=== PATIENT | male | born 1935 | race Caucasian/White ===

== ENCOUNTER 2017-03-11 13:19 | Inpatient (IN) | payer MEDICARE ==
[~2017-03-11] VITALS: Ht 180.3 cm; Wt 70.0 kg
[~2017-03-11 13:19] MED LIST: ASPI81TA82 PO; COUM2TAB PO; COUM3TAB PO; EYEDRO; FOLI1 PO; FURO20 PO; LEFL20TA7 PO; METO50TA PO; MULTCAP14 PO; OMEP20TA39 PO; OXYC-360 PO; PRAV80TA PO; PYRI50TA PO; RAMI5CAP7 PO; WARF2.5 PO
[2017-03-11 13:28] VITALS: BP 112/53; PULSE 53; RESP 16; TEMP 97.3; O2SAT 98
[2017-03-11] MEDS ORDERED: POTA-163 PO (13:49)
[2017-03-11] MEDS ORDERED: METO25TA3 PO (13:49)
[2017-03-11] MEDS ORDERED: PLAV75TA29 PO (13:49)
[2017-03-11] MEDS ORDERED: WARF4TAB51 PO (13:49)
[2017-03-11] MEDS ORDERED: TRAM50TA PO (13:49)
[2017-03-11] MEDS ORDERED: PRAV20TA2 PO (13:49)
[2017-03-11] MEDS ORDERED: LEFL20 PO (13:49)
[2017-03-11] MEDS ORDERED: SPIR25TA PO (13:49)
[2017-03-11] MEDS ORDERED: BUME2TAB PO (13:49)
[2017-03-11] MEDS ORDERED: FOLI1TAB6 (13:49)
[2017-03-11] MEDS ORDERED: AMIO200T PO (13:49)
[2017-03-11] MEDS ORDERED: DIGO0.127 PO (13:49)
[2017-03-11] MEDS ORDERED: LISI-519 PO (13:49)
[2017-03-11] MEDS ORDERED: PANT40TA3 PO (13:49)
--- NOTE | 2017-03-11 13:51 | PD ---
HPI Chief Complaint: Abnormal Results Time Seen by Provider: 13:35 Travel History International Travel<30 days: No Contact w/Intl Traveler<30days: No Traveled to known affect area: No History of Present Illness HPI This patient had an outpatient blood draw yesterday as a preop study due to cataract surgery coming up. He received a call today from his physician to come to the ER because his potassium was elevated at 6.9. The patient himself feels well. He has chronic A. fib on Coumadin. However he does take JAMES inhibitor and potassium supplementation and have renal insufficiency. He denies presyncopal symptoms. Symptoms severity is mild. No alleviating factors. Duration one day. PFSH Past Medical History Hx Anticoagulant Therapy: Yes (WARFARIN) Arthritis: Yes (Degenerative, Osteo and Rheumatoid) Atrial Fibrillation: Yes Cardiovascular Problems: Yes (PAD) High Cholesterol: Yes COPD: Yes Coronary Artery Disease: Yes GERD: Yes Hypertension: Yes Respiratory: Yes Immunizations Current: Yes Tetanus Vaccination: < 5 Years Influenza Vaccination: Yes Past Surgical History Cardiac Surgery: Yes (Mitral and Tricuspid Valve replaced) Other Surgery: Yes (Carotid Endartectomy left) Social History Alcohol Use: No Tobacco Use: No Substance Use: No Allergies-Medications (Allergen,Severity, Reaction): Coded Allergies: No Known Allergies (Unverified , 03/11/17) Reported Meds & Prescriptions Reported Meds & Active Scripts Active Reported Carafate Liq (Sucralfate) 1 Gm/10 Ml Susp 1 Gm PO BID on empty stomach Folic Acid 1 Mg Tablet Potassium Chloride ER (Potassium Chloride) 20 Meq Tab 20 Meq PO DAILY Warfarin 2 Mg Tab 2 Mg PO DAILY Plavix (Clopidogrel Bisulfate) 75 Mg Tab 75 Mg PO DAILY Pantoprazole (Pantoprazole Sodium) 40 Mg Tab 40 Mg PO DAILY Pravastatin 20 Mg Tab 20 Mg PO DAILY Arava (Leflunomide) 20 Mg Tab 20 Mg PO DAILY Lisinopril 5 Mg Tab 5 Mg PO DAILY Metoprolol Tartrate 25 Mg Tab 25 Mg PO BID Spironolactone 25 Mg Tab 25 Mg PO DAILY Bumetanide 2 Mg Tab 2 Mg PO DAILY Amiodarone (Amiodarone HCl) 200 Mg Tab 200 Mg PO DAILY Tramadol (Tramadol HCl) 50 Mg Tab 50 Mg PO Q6H PRN Digox (Digoxin) 0.125 Mg Tab 0.125 Mg PO DAILY Review of Systems General / Constitutional: No: Fever Eyes: No: Visual changes HENT: No: Headaches Cardiovascular: Positive: Irregular Rhythm, No: Chest Pain or Discomfort Respiratory: No: Shortness of Breath Gastrointestinal: Positive: Diarrhea, No: Abdominal Pain Genitourinary: No: Dysuria Musculoskeletal: No: Pain Skin: No Rash Neurologic: No: Weakness Psychiatric: No: Depression Endocrine: No: Polydipsia Hematologic/Lymphatic: No: Easy Bruising Physical Exam Narrative GENERAL: Well-nourished, well-developed patient in no apparent distress. SKIN: Focused skin assessment reveals no rash and nodules. Skin is Warm and dry. HEAD: Atraumatic. Normocephalic. EYES: Pupils equal and round. No scleral icterus. No injection or drainage. ENT: No nasal bleeding or discharge. Mucous membranes pink and moist. NECK: Trachea midline. No JVD. CARDIOVASCULAR: Irregularly irregular rhythm. No murmur appreciated. Heart rate of 50 RESPIRATORY: No accessory muscle use. Clear to auscultation. Breath sounds equal bilaterally. GASTROINTESTINAL: Abdomen soft, non-tender, nondistended. Hepatic and splenic margins not palpable. MUSCULOSKELETAL: No obvious deformities. No clubbing. No cyanosis. No edema. There is some lower leg hyperpigmentation that symmetric but no edema NEUROLOGICAL: Awake and alert. No obvious cranial nerve deficits. Motor grossly within normal limits. Normal speech. PSYCHIATRIC: Appropriate mood and affect; insight and judgment normal. Data Data Last Documented VS Vital Signs Date Time Temp Pulse Resp B/P Pulse Ox O2 Delivery O2 Flow Rate FiO2 03/11/17 13:28 97.3 53 16 112/53 98 Orders Iv Access Insert/Monitor (03/11/17 13:44) Complete Blood Count With Diff (03/11/17 13:44) Basic Metabolic Panel (Bmp) (03/11/17 13:44) Electrocardiogram (03/11/17 ) Digoxin (03/11/17 13:44) Ecg Monitoring (03/11/17 14:25) Insulin Human Regular Inj (Novolin R Inj (03/11/17 14:30) Dextrose 50% In Josiane (Vial) Inj (D50w (Vi (03/11/17 14:30) Sodium Bicarbonate 8.4% Inj (Sodium Bica (03/11/17 14:30) Sodium Polysty Sulfate Liq (Kayexalate L (03/11/17 14:30) Place In Observation (03/11/17 ) Vital Signs (Adult) Q4H (03/11/17 14:41) Activity Oob Ad Jud (03/11/17 14:41) Intake + Output FAITH.QSHIFT (03/11/17 14:41) Diet Heart Healthy (03/11/17 Dinner) Sodium Chloride 0.9% Flush (Ns Flush) (03/11/17 14:45) Sodium Chloride 0.9% Flush (Ns Flush) (03/11/17 21:00) Ondansetron Inj (Zofran Inj) (03/11/17 14:45) Basic Metabolic Panel (Bmp) (03/12/17 06:00) Scd Bilateral/Knee High FAITH.BID (03/11/17 14:41) Tim Bilateral/Knee High FAITH.QSHIFT (03/11/17 14:41) Naloxone Inj (Narcan Inj) (03/11/17 14:45) Docusate Sodium-Senna (Marian-Colace) (03/11/17 21:00) Magnesium Hydroxide Liq (Milk Of Magnesi (03/11/17 14:45) Sennosides (Senokot) (03/11/17 14:45) Bisacodyl Supp (Dulcolax Supp) (03/11/17 14:45) Lactulose Liq (Lactulose Liq) (03/11/17 14:45) Admit Order (Ed Use Only) (03/11/17 14:42) Labs Laboratory Tests Test 03/11/17 14:03 White Blood Count 4.0 TH/MM3 Red Blood Count 2.78 MIL/MM3 Hemoglobin 8.8 GM/DL Hematocrit 28.6 % Mean Corpuscular Volume 102.8 FL Mean Corpuscular Hemoglobin 31.7 PG Mean Corpuscular Hemoglobin 30.9 % Concent Red Cell Distribution Width 15.0 % Platelet Count 166 TH/MM3 Mean Platelet Volume 7.4 FL Neutrophils (%) (Auto) 58.6 % Lymphocytes (%) (Auto) 24.1 % Monocytes (%) (Auto) 11.4 % Eosinophils (%) (Auto) 5.3 % Basophils (%) (Auto) 0.6 % Neutrophils # (Auto) 2.3 TH/MM3 Lymphocytes # (Auto) 1.0 TH/MM3 Monocytes # (Auto) 0.5 TH/MM3 Eosinophils # (Auto) 0.2 TH/MM3 Basophils # (Auto) 0.0 TH/MM3 CBC Comment DIFF FINAL Differential Comment Sodium Level 140 MEQ/L Potassium Level 6.5 MEQ/L Chloride Level 114 MEQ/L Carbon Dioxide Level 18.6 MEQ/L Anion Gap 7 MEQ/L Blood Urea Nitrogen 57 MG/DL Creatinine 1.80 MG/DL Estimat Glomerular Filtration 36 ML/MIN Rate Random Glucose 91 MG/DL Calcium Level 9.9 MG/DL Digoxin Level 1.7 NG/ML MDM Medical Decision Making Medical Screen Exam Complete: Yes Emergency Medical Condition: Yes Medical Record Reviewed: Yes Differential Diagnosis Hyperkalemia, cardiac arrhythmia, renal failure Narrative Course I have reviewed the patient's electronic medical record. Patient has history of chronic A. fib. His last labs reveal some mild renal insufficiency. IV placed I reviewed his EKG which shows A. fib and bradycardic. There is no peaking of T waves His A. fib is chronic CBC shows chronic anemia Metabolic profile shows hyperkalemia of 6.5 with BUN higher than usual for him and chronic renal insufficiency I gave him IV dextrose and IV regular insulin and IV sodium bicarbonate and Kayexalate for his critical hyperkalemia Extended cardiac monitoring reveals slow A. fib I've added digoxin level which is pending at time of dictation Patient requires telemetry admission for his hyperkalemia He will need to stop his potassium supplementation and his JAMES inhibitor and his potassium sparing diuretic I reviewed his case in detail with hospitalist coverage who are seeing him right now I do not think he needs emergent dialysis, he is not acidotic Critical Care Narrative Aggregate critical care time was 35 minutes. Time to perform other separately billable procedures was not included in the critical care time. My time did not include minutes spent treating any other patients simultaneously or on activities that did not directly contribute to the patient's treatment. The services I provided to this patient were to treat and/or prevent clinically significant deterioration that could result in: Cardiopulmonary arrest, cardiac arrhythmia I provided critical care services requiring my management, as noted below: Chart data review, documentation time, medication orders and management, vital sign assessments/reviewing monitor data, ordering and reviewing lab tests, ordering and interpreting/reviewing x-rays and diagnostic studies, care of the patient and discussion of the patient with the admitting physicians. Diagnosis Primary Impression: Acute hyperkalemia Admitting Information Admitting Physician Requests: Admit Homero Wood MD Mar 11, 2017 13:51
[2017-03-11 14:22] LABS: AUTOMATED NEUTROPHIL # 2.3 TH/MM3 (1.8-7.7); BASOPHIL % 0.6 % (0.0-2.0); EOSINOPHIL # 0.2 TH/MM3 (0-0.4); EOSINOPHIL % 5.3 % (0.0-4.0); HEMATOCRIT 28.6 % (39.0-51.0); HEMO FLAGS DIFF FINAL; LYMPH % 24.1 % (9.0-44.0); MEAN CELL VOLUME 102.8 FL (80.0-100.0); MEAN CORPUSCULAR HEMOGLOBIN 31.7 PG (27.0-34.0); MEAN CORPUSCULAR HGB CONC 30.9 % (32.0-36.0); MONO % 11.4 % (0.0-8.0); NEUT % 58.6 % (16.0-70.0); PLATELET COUNT 166 TH/MM3 (150-450); POTASSIUM 6.5 MEQ/L (3.5-5.1); RED BLOOD COUNT 2.78 MIL/MM3 (4.50-5.90)
[2017-03-11 14:25] LABS: BICARBONATE 18.6 MEQ/L (21.0-32.0)
[2017-03-11] MEDS ORDERED: DEXTROSE 50% IN WATER 50 ML VIAL(D50) IV PUSH ONE (14:30)
[2017-03-11] MEDS ORDERED: SODIUM BICARBONATE 8.4% SOLN 50 MEQ/50 ML VIAL SLOW IVP ONE (14:30)
[2017-03-11] MEDS ORDERED: INSULIN HUMAN REGULAR 1,000 UNITS/10 ML VIAL IV PUSH ONE (14:30)
[2017-03-11] MEDS ORDERED: SODIUM POLYSTYRENE SULFONATE SUSP 15 GM/60 ML CUP PO ONE (14:30)
[2017-03-11 14:43] LABS: DIGOXIN 1.7 NG/ML (0.8-2.0)
[2017-03-11] MEDS ORDERED: SENNOSIDES 8.6 MG TAB PO PRN (14:45)
[2017-03-11] MEDS ORDERED: NALOXONE HCL 0.4 MG/ML AMP IV PRN (14:45)
[2017-03-11] MEDS ORDERED: MAGNESIUM HYDROXIDE SUSP 30 ML CUP PO PRN (14:45)
[2017-03-11] MEDS ORDERED: BISACODYL 10 MG SUPP RECTAL PRN (14:45)
[2017-03-11] MEDS ORDERED: LACTULOSE SYRUP 20 GM/30 ML CUP PO PRN (14:45)
[2017-03-11] MEDS ORDERED: ONDANSETRON HCL 4 MG/2 ML VIAL IVP PRN (14:45)
[2017-03-11] MEDS ORDERED: SODIUM CHLORIDE 0.9% FLUSH 10 ML FLUSH IV FLUSH PRN (14:45)
[2017-03-11] MEDS ORDERED: CARA1SUS3 PO (14:57)
[2017-03-11 15:41] VITALS: BP 130/88; PULSE 64; RESP 18; O2SAT 97
--- NOTE | 2017-03-11 15:55 | HHI.HP ---
[facility] Christopher Tripathi MD Admission Diagnosis hyperkalemia Diagnoses: (1) Acute hyperkalemia Diagnosis: Principal (2) Abdominal pain Diagnosis: Principal (3) Weight loss Diagnosis: Principal Chief Complaint: Patient sent by primary medical doctor because of abnormal laboratory studies Travel History International Travel<30 Days: No Contact w/Intl Traveler <30 Da: No Traveled to Known Affected Are: No History of Present Illness Written by Homero Forbes, acting as scribe for Dr. Gaytan on 03/11/17 at 15: 26. 82-year-old male hypertension, hyperlipidemia, atrial fibrillation, mitral and tricuspid valve , congestive heart failure who presented to hospital because because of abnormal laboratory studies. Patient indicates that he has been having upper abdominal pain for the last week. He went to his primary medical doctor's office for evaluation and had laboratory studies performed. Lab results came back and patient was told to come to the hospital because he had an elevated potassium level. Patient states that his abdominal pain is located in his upper abdomen region. Usually 24 on a pain scale, however that has been couple occasions was gotten worse. He has not had any nausea or vomiting. The pain is there with deep palpation. He indicates that he is had what he stated was diarrhea for the last few days. States that whenever he passes gas he gets remnants of stool come out. Patient indicates that he has had a 1015 pound weight loss in the last month. Patient was seen in the presence of his son. They're concerned about his abdominal pain and would like it evaluated at this time. Patient denies any chest pain, shortness of breath, palpitations, dyspnea, muscle cramps Review of Systems Constitutional: COMPLAINS OF: Weight loss Gastrointestinal: COMPLAINS OF: Abdominal pain, Diarrhea Except as stated in HPI: all other systems reviewed are Neg Past Family Social History Past Medical History Hypertension Hyperlipidemia Congestive heart failure Cardiomyopathy Atrial fibrillation Chronic obstructive pulmonary disease Peripheral artery disease Gastroesophageal reflux Past Surgical History Left carotid endarterectomy Mitral and tricuspid valve repair Right knee replacement Right ankle surgery Reported Medications Reported Meds & Active Scripts Active Reported Carafate Liq (Sucralfate) 1 Gm/10 Ml Susp 1 Gm PO BID on empty stomach Folic Acid 1 Mg Tablet Potassium Chloride ER (Potassium Chloride) 20 Meq Tab 20 Meq PO DAILY Warfarin 2 Mg Tab 2 Mg PO DAILY Plavix (Clopidogrel Bisulfate) 75 Mg Tab 75 Mg PO DAILY Pantoprazole (Pantoprazole Sodium) 40 Mg Tab 40 Mg PO DAILY Pravastatin 20 Mg Tab 20 Mg PO DAILY Arava (Leflunomide) 20 Mg Tab 20 Mg PO DAILY Lisinopril 5 Mg Tab 5 Mg PO DAILY Metoprolol Tartrate 25 Mg Tab 25 Mg PO BID Spironolactone 25 Mg Tab 25 Mg PO DAILY Bumetanide 2 Mg Tab 2 Mg PO DAILY Amiodarone (Amiodarone HCl) 200 Mg Tab 200 Mg PO DAILY Tramadol (Tramadol HCl) 50 Mg Tab 50 Mg PO Q6H PRN Digox (Digoxin) 0.125 Mg Tab 0.125 Mg PO DAILY Allergies: Coded Allergies: No Known Allergies (Unverified , 03/11/17) Family History Reviewed and significant for mother having arthritis and undergoing gold injections in which caused renal failure. Father with prostate cancer Social History Patient quit drinking alcohol and smoking 20 years ago, no illicit drug use Physical Exam Vital Signs Vital Signs Date Time Temp Pulse Resp B/P Pulse Ox O2 Delivery O2 Flow Rate FiO2 03/11/17 13:28 97.3 53 16 112/53 98 Physical Exam GENERAL: Well-developed, well-nourished. alert and orientated HEENT: Head is normocephalic without any lesions or masses noted. Facial features are symmetric. Eyes: Pupils equal round reactive to light. Extraocular muscles are intact. Conjunctivae were clear. Oropharyngeal: Pharynx without any erythema edema. Tongue is midline without deviation. Buccal mucosa is moist without any masses or lesions NECK: Supple without any masses. Trachea midline no deviation. CARDIAC: Regular rhythm, regular rate. No murmurs gallops or rubs. LUNGS: Clear to auscultation bilaterally. No wheeze. No use of accessory muscles on inspiration or expiration. ABDOMEN: Soft, tenderness noted on deep palpation of left upper and epigastric regions. Nondistended. Bowel sounds heard in all 4 quadrants. Negative rebound , negative guarding EXTREMITIES: No edema, pulses are equal bilaterally. NEUROLOGY: Mood and affect appear appropriate. Cranial nerves II through XII grossly intact. Muscle strength 5/5 in upper and lower extremities bilaterally. Laboratory Laboratory Tests Test 03/11/17 14:03 White Blood Count 4.0 Red Blood Count 2.78 Hemoglobin 8.8 Hematocrit 28.6 Mean Corpuscular Volume 102.8 Mean Corpuscular Hemoglobin 31.7 Mean Corpuscular Hemoglobin 30.9 Concent Red Cell Distribution Width 15.0 Platelet Count 166 Mean Platelet Volume 7.4 Neutrophils (%) (Auto) 58.6 Lymphocytes (%) (Auto) 24.1 Monocytes (%) (Auto) 11.4 Eosinophils (%) (Auto) 5.3 Basophils (%) (Auto) 0.6 Neutrophils # (Auto) 2.3 Lymphocytes # (Auto) 1.0 Monocytes # (Auto) 0.5 Eosinophils # (Auto) 0.2 Basophils # (Auto) 0.0 CBC Comment DIFF FINAL Differential Comment Sodium Level 140 Potassium Level 6.5 Chloride Level 114 Carbon Dioxide Level 18.6 Anion Gap 7 Blood Urea Nitrogen 57 Creatinine 1.80 Estimat Glomerular Filtration 36 Rate Random Glucose 91 Calcium Level 9.9 Digoxin Level 1.7 Result Diagram: 03/11/17 1403 03/11/17 1403 Imaging Assessment and Plan Assessment and Plan Abdominal pain with weight loss, unknown etiology Obtain CT scan of the abdomen Check LFTs, amylase, lipase Start proton pump inhibitor Consult tension worker for evaluation Hyperkalemia Condition is multifactorial with the patient on Bumex, spironolactone, lisinopril, and potassium replacement Status post D5, insulin, sodium bicarbonate, Kayexalate in the ER Recheck potassium today and in AM We will hold potassium replacement Hypertension, hyperlipidemia, congestive heart failure, cardiomyopathy, atrial fibrillation Continue home medications Continue anticoagulation with Coumadin Monitor INR DVT prevention Patient on Coumadin This note was transcribed by timothy Forbes. I, Dr. Uma Gaytan personally performed the history, physical exam, and medical decision making; and confirmed the accuracy of the information in the transcribed note. Authenticated by Dr. Uma Gaytan on 03/11/17 at 15:26. Code Status Full code Discussed Condition With Patient, ER physician, son at bedside Problem Qualifiers (1) Abdominal pain: Qualified Code: R10.10 - Pain of upper abdomen Homero Forbes Mar 11, 2017 15:55 Uma Gaytan MD Mar 12, 2017 11:36
[2017-03-11 16:00] VITALS: BP 113/54; PULSE 55; RESP 20; TEMP 97.2; O2SAT 96
[2017-03-11 16:37] LABS: INTERNATIONAL NORMALIZED RATIO 2.3 RATIO; PROTHROMBIN TIME - PATIENT 26.4 SEC (9.8-11.6)
[2017-03-11 17:10] LABS: INDIRECT BILIRUBIN 0.2 MG/DL (0.0-0.8); POTASSIUM 4.6 MEQ/L (3.5-5.1); TOTAL BILIRUBIN ADULT 0.4 MG/DL (0.2-1.0)
[2017-03-11] MEDS ORDERED: DIATRIZOATE MEGLUM/DIATRIZOATE SOD 9 ML CUP PO ONE (19:00)
[2017-03-11 20:00] VITALS: BP 135/55; PULSE 40; PULSE 54; RESP 20; TEMP 96; O2SAT 98
[2017-03-11] MEDS ORDERED: LEFLUNOMIDE 20 MG PO SCH (20:00)
[2017-03-11] MEDS: DOCUSATE SODIUM 50 MG/SENNA 8.6 MG TAB PO SCH (21:00)
[2017-03-11] MEDS: SODIUM CHLORIDE 0.9% FLUSH 10 ML FLUSH IV FLUSH SCH (21:15)
--- NOTE | 2017-03-11 23:40 | RADRPT ---
EXAM DATE/TIME: 03/11/2017 22:51 [facility] COMPARISON: No previous studies available for comparison. INDICATIONS : Abdominal pain and hyperkalemia. ORAL CONTRAST: Prescribed oral contrast ingested. RADIATION DOSE: 16.75 CTDIvol (mGy) MEDICAL HISTORY : Peripheral vascular disease. SURGICAL HISTORY : Carotid endarterectomy. cardiac valve replacement ENCOUNTER: Initial ACUITY: 1 day PAIN SCALE: 0/10 LOCATION: abdomen TECHNIQUE: Volumetric scanning of the abdomen and pelvis was performed. Using automated exposure control and ad justment of the mA and/or kV according to patient size, radiation dose was kept as low as reasonably achievable to obtain optimal diagnostic quality images. DICOM format image data is available electro nically for review and comparison. FINDINGS: There are centrilobular emphysematous changes in both lower lobes. No pleural effusions are identifie d. Moderate scoliotic deformity is present to the left with a rotatory component with the apex at L3. The liver and spleen are normal in size and no focal defects are identified. There are multiple stone s within the gallbladder without wall thickening or pericholecystic fluid the largest measuring 5 mm. The pancreas demonstrates no evidence of mass and there is no dilatation of the pancreatic duct. The adrenal glands and kidneys appear normal bilaterally. No hydronephrosis or mass lesions are identifi ed. Examination of the pelvis demonstrates no evidence of free fluid or pelvic mass. No abnormally enlarg ed inguinal or retroperitoneal lymph nodes are present. The bladder is unremarkable. There is diverti culosis without evidence of diverticulitis. CONCLUSION: 1. No evidence of acute abdominal or pelvic process. No masses are identified. 2. Cholelithiasis Christopher Ames MD on March 11, 2017 at 23:30 Board Certified Radiologist. This report was verified electronically.
[2017-03-12] VITALS: BP 123/45; PULSE 53; RESP 20; TEMP 96; O2SAT 100
[2017-03-12 04:00] VITALS: BP 95/51; PULSE 58; RESP 20; TEMP 97.9; O2SAT 95
[2017-03-12 07:20] LABS: AUTOMATED NEUTROPHIL # 2.1 TH/MM3 (1.8-7.7); BASOPHIL % 1.1 % (0.0-2.0); EOSINOPHIL # 0.2 TH/MM3 (0-0.4); EOSINOPHIL % 4.3 % (0.0-4.0); HEMATOCRIT 24.2 % (39.0-51.0); HEMO FLAGS DIFF FINAL; LYMPH % 24.2 % (9.0-44.0); LYMPHOCYTE # 0.9 TH/MM3 (1.0-4.8); MEAN CELL VOLUME 101.3 FL (80.0-100.0); MEAN CORPUSCULAR HEMOGLOBIN 32.8 PG (27.0-34.0); MEAN CORPUSCULAR HGB CONC 32.4 % (32.0-36.0); NEUT % 59.4 % (16.0-70.0); PLATELET COUNT 141 TH/MM3 (150-450); RED BLOOD COUNT 2.39 MIL/MM3 (4.50-5.90); RED CELL DISTRIBUTION WIDTH 14.3 % (11.6-17.2); WHITE BLOOD COUNT 3.6 TH/MM3 (4.0-11.0)
[2017-03-12 07:29] LABS: POTASSIUM 5.2 MEQ/L (3.5-5.1)
[2017-03-12 07:38] LABS: BICARBONATE 19.5 MEQ/L (21.0-32.0)
[2017-03-12 08:00] VITALS: BP 107/54; PULSE 56; PULSE 64; RESP 18; TEMP 99.5; O2SAT 96
[2017-03-12] MEDS ORDERED: LISINOPRIL 5 MG TAB PO SCH (09:00)
[2017-03-12] MEDS: DOCUSATE SODIUM 50 MG/SENNA 8.6 MG TAB PO SCH ×2 (09:14→20:36)
[2017-03-12] MEDS: CLOPIDOGREL 75 MG TAB PO SCH (09:14)
[2017-03-12] MEDS: PANTOPRAZOLE SOD 40 MG DELAYED RELEASE TAB PO SCH (09:14)
[2017-03-12] MEDS: AMIODARONE 200 MG TAB PO SCH (09:14)
[2017-03-12] MEDS: PRAVASTATIN SOD 20 MG TAB PO SCH (09:15)
[2017-03-12] MEDS: SPIRONOLACTONE 25 MG TAB PO SCH (09:15)
[2017-03-12] MEDS: DIGOXIN 0.125 MG TAB PO SCH (09:15)
[2017-03-12] MEDS: BUMETANIDE 1 MG TAB PO SCH (09:33)
[2017-03-12] MEDS: SODIUM CHLORIDE 0.9% FLUSH 10 ML FLUSH IV FLUSH SCH ×2 (09:34→20:36)
[2017-03-12] MEDS ORDERED: SODIUM POLYSTYRENE SULFONATE SUSP 15 GM/60 ML CUP PO ONE (10:00)
--- NOTE | 2017-03-12 11:05 | HHI.PR ---
Subjective Remarks Written by Homero Forbes, acting as scribe for Dr. Gaytan on 03/12/17 at 10: 59. Patient still complaining of abdominal pain 4/5 on a pain scale. states that movement makes it worst therefore he tries to sleep on his side. no chest pains , palpitations, sob, vomiting Objective Vitals Vital Signs Date Time Temp Pulse Resp B/P Pulse Ox O2 Delivery O2 Flow Rate FiO2 03/12/17 08:00 99.5 64 18 107/54 96 03/12/17 04:00 97.9 58 20 95/51 95 03/12/17 00:00 96.0 53 20 123/45 100 03/11/17 20:00 40 03/11/17 20:00 96.0 54 20 135/55 98 03/11/17 16:00 97.2 55 20 113/54 96 03/11/17 15:41 64 18 130/88 97 Room Air 03/11/17 13:28 97.3 53 16 112/53 98 I/O 03/11/17 03/11/17 03/11/17 03/12/17 03/12/17 03/12/17 07:00 15:00 23:00 07:00 15:00 23:00 Intake Total 950 ml 150 ml 60 ml Output Total 4 ml Balance 946 ml 150 ml 60 ml Intake Oral 950 ml 150 ml 60 ml Output Urine Total 4 ml # Voids 2 3 2 # Bowel Movements 8 2 Result Diagram: 03/12/17 0650 03/12/17 0650 Imaging Last Impressions Abdomen/Pelvis CT 03/11/17 0000 Signed Impressions: Service Date/Time: Saturday, March 11, 2017 22:51 - CONCLUSION: 1. No evidence of acute abdominal or pelvic process. No masses are identified. 2. Cholelithiasis Christopher Ames MD Objective Remarks GENERAL: Well-developed, well-nourished. alert and orientated Eyes: Extraocular muscles are intact. Conjunctivae were clear. NECK: Trachea midline CARDIAC: Regular rhythm, regular rate. No murmurs gallops or rubs. LUNGS: Clear to auscultation bilaterally. No wheeze. ABDOMEN: Soft, tenderness noted on deep palpation in the epigastric region. Nondistended. Bowel sounds heard in all 4 quadrants. EXTREMITIES: No edema, pulses are equal bilaterally. NEUROLOGY: Mood and affect appear appropriate. Cranial nerves II through XII grossly intact. Moving all extremities, speech is clear Urinary Catheter: No Vascular Central Line Catheter: No A/P Assessment and Plan Abdominal pain with weight loss, unknown etiology CT the abdomen did not indicate any abnormality. + cholelithiasis LFTs and lipase were normal Continue proton pump inhibitor Consulted red hat open stack administrator for evaluation [place] for pain Hyperkalemia Condition is multifactorial with the patient on Bumex, spironolactone, lisinopril, and potassium replacement Status post D5, insulin, sodium bicarbonate, Kayexalate in the ER Potassium did improve to 4.6, however this morning 5.2 Give another dose Kayexalate 15 g today Continue to hold potassium replacement Follow-up potassium level later today Hypertension, hyperlipidemia, congestive heart failure, cardiomyopathy, atrial fibrillation Continue home medications Continue anticoagulation with Coumadin Monitor INR DVT prevention Patient on Coumadin This note was transcribed by timothy Forbes. I, Dr. Uma Gaytan personally performed the history, physical exam, and medical decision making; and confirmed the accuracy of the information in the transcribed note. Authenticated by Dr. Uma Gaytan on 03/12/17 at 10:59 Discharge Planning awaiting GI consult and recs. Repeat K level around 2 pm today s/p kayexalate Counseled pt on a low potassium diet and diet has been switched to that Homero Forbes Mar 12, 2017 11:05 Uma Gaytan MD Mar 12, 2017 11:40
[2017-03-12 12:00] VITALS: BP 104/56; PULSE 63; RESP 18; TEMP 97.1; O2SAT 95
[2017-03-12 13:50] LABS: POTASSIUM 4.6 MEQ/L (3.5-5.1)
[2017-03-12 13:53] LABS: BICARBONATE 20.3 MEQ/L (21.0-32.0)
[2017-03-12 16:00] VITALS: BP 119/54; PULSE 85; RESP 20; TEMP 96.9; O2SAT 98
[2017-03-12] MEDS ORDERED: DO NOT ADM ANY ANTICOAGULANT DRUGS OTHER PRN (16:00)
[2017-03-12] MEDS ORDERED: WARFARIN SOD 2 MG TAB PO SCH (16:00)
--- NOTE | 2017-03-12 17:09 | EKG ---
Date Performed: 03/11/2017 Time Performed: 13:45:15 PTAGE: 82 years EKG: ATRIAL FIBRILLATION WITH SLOW VENTRICULAR RESPONSE POSSIBLE RIGHT VENTRICULAR CONDUCTION DE LAY LEFT ANTERIOR FASCICULAR BLOCK ST DEVIATION AND MODERATE T-WAVE ABNORMALITY, CONSIDER ANTERIOR IS CHEMIA ABNORMAL ECG NO PREVIOUS TRACING DOCTOR: Alexander Lao Interpretating Date/Time 03/12/2017 17:07:54
--- NOTE | 2017-03-12 18:13 | MB ---
cc: CHRISTIAN GUTIERREZ M.D. DATE OF CONSULTATION: 03/12/2017. REASON FOR CONSULTATION: Weight loss, abdominal pain, change in bowel habits, anemia. REFERRING PHYSICIAN: Dr. Gaytan. HISTORY OF PRESENT ILLNESS: Mr. Jackson is a pleasant 82-year-old gentleman with multiple medical problems who came to the emergency room referred by his primary care doctor due to abnormal potassium level. While in the emergency room, Dr. Gaytan was contacted by his family who are worried about his recent weight loss and pain after eating and moving .Symptoms going on for the last month or so. The patient also reports having some loose stools with urgency and also what sounds like possible incontinence for gas and stool. According to him, this has been going on for the last four to six weeks. He is not a very good historian. He thinks he may have had a colonoscopy some time ago. He denies any melena, hematemesis or hematochezia. He does have chronic pain in the right flank going on for many months. Also he has a new pain in the epigastrium, which according to him has been going on for four to six weeks. He is unable to tell me what triggers this pain. He said he does have decreased appetite and some nausea. PAST MEDICAL HISTORY: 1. High blood pressure. 2. High cholesterol. 3. Congestive heart failure. 4. Cardiomyopathy. 5. Atrial fibrillation. 6. COPD. 7. Peripheral artery disease. 8. Reflux. PAST SURGICAL HISTORY: 1. Left carotid endarterectomy. 2. Mitral and tricuspid valve repair. 3. Right knee replacement. 4. Right ankle surgery. MEDICATIONS AT HOME: 1. Carafate. 2. Folic acid. 3. Potassium chloride. 4. Coumadin. 5. Plavix. 6. Protonix. 7. Pravastatin. 8. . 9. Lisinopril. 10. Metoprolol. 11. Spironolactone. 12. . 13. Amiodarone. 14. Tramadol. 15. Digoxin. ALLERGIES: NO KNOWN ALLERGIES. FAMILY HISTORY: Prostate cancer. SOCIAL HISTORY: He quit smoking twenty years ago. REVIEW OF SYSTEMS: CONSTITUTIONAL: He denies any fever or chills. He does have weight loss, decreased appetite. HEAD, EYES, EARS, NOSE, THROAT: No alteration in baseline hearing or visual acuity. PULMONARY: Denies any chest pain or shortness of breath. GASTROINTESTINAL: As above. GENITOURINARY: Denies any dysuria or hematuria. HEMATOLOGICAL: He does have history of anemia. No bleeding disorders. SKIN: No alteration in baseline skin lesions. NEUROLOGICAL: No history of TIA or CVA kind of symptoms. PHYSICAL EXAMINATION: GENERAL: On clinical exam, he is sitting comfortably in bed in no acute distress. VITAL SIGNS: His temperature is 96.9, pulse 85, respirations 20, blood pressure 119/54, pulse oximetry 98%. HEAD, EYES, EARS, NOSE, THROAT: Pupils equal, round and reactive to light and accommodation. Pale. NECK: No jugular venous distention. No lymphadenopathy. CHEST: Clear to auscultation and palpation. CARDIOVASCULAR: S1 S2. Murmur. ABDOMEN: Abdomen soft and nontender. Bowel sounds are present. [employer] PLAN SALES UNIT ADVISOR: Awake, alert and oriented times three. No focal signs identified. LABORATORY DATA: His potassium on admission was 6.5, currently 4.6. Bicarbonate is 18.6, currently 20.3. BUN 49. Creatinine 1.7, which is at his baseline. Liver enzymes are normal. His hemoglobin is 8.8, currently 7.9. MCV 102. Platelets 141,000 today. White count is 3.6. PT and INR is 26.4 and 2.3. IMAGING STUDIES: The patient had a CT abdomen and pelvis which showed gallstones, otherwise no pathology noted. IMPRESSION: Mr. Jackson is a pleasant 82-year-old gentleman with multiple medical issues and complaints of weight loss, change in bowel habits, abdominal pain in the epigastrium found to also have anemia and needs further investigation. RECOMMENDATIONS: 1. Upper endoscopy and colonoscopy will be scheduled, most likely on Monday once his INR is corrected. 2. Preop for anticoagulation as per medical team. 3. We are also going to send vitamin B12 and folic acid. 4. Consider hematology consultation. 5. Stools for ova and parasites. 6. Culture for C. Difficile, gallstones, gout as the cause of his problems. 7. We will do a HIDA scan to rule out any underlying pathology in view of his pain in the right upper quadrant. 8. Supportive care. 9.cardiac clearance -dr Clark will be consulted Discussed with the patient, the family and Dr. Gaytan. Thank you again and we will continue to follow the patient along with you. MD TEJ Medina/ARANZA /5:36 PM /5:57 PM GLEN
--- NOTE | 2017-03-12 18:31 | HHI.PR ---
Addendum to Inpatient Note Addendum Reason: Additional Documentation Additional Information I discussed the case w Dr. Blancas who spoke w pt's family this afternoon. They would like for her to proceed w workup during this hospitalization. Pt is on coumadin and is currently therapeutic. will hold coumadin as it hasn't yet been given for today. check INR tomorrow, if elevated give vit K. will start a heparin gtt as pt does have atrial fib. The plan would be for pt to have his procedures on monday. Dr. Blancas has consulted pt's vacuum cleaner mechanic Dr. Clark per pt's family request. I spoke w pt's family as well. They are very concerned about d/c planning as they will all be on a cruise starting tomorrow and no one will be available to pick him up if he were to be discharged before monday. Pt does live alone, and has a jones to his home but they worry about transportation. I explained to them that I will consult PT to evaluate pt, if he doesn't require any home health or rehab and if pt is cleared for discharge then, CM can assist w transportation. I will consult CM for d/c planning and will discharge pt accordingly base on PT's recs. Family agreeable w plan. Uma Gaytan MD Mar 12, 2017 18:30
[2017-03-12 18:57] LABS: MEAN CELL VOLUME 102.4 FL (80.0-100.0); MEAN CORPUSCULAR HEMOGLOBIN 32.6 PG (27.0-34.0); MEAN CORPUSCULAR HGB CONC 31.8 % (32.0-36.0); PLATELET COUNT 148 TH/MM3 (150-450); RED BLOOD COUNT 2.54 MIL/MM3 (4.50-5.90); REVIEW FLAG FINAL; WHITE BLOOD COUNT 4.3 TH/MM3 (4.0-11.0)
[2017-03-12 19:10] LABS: APTT (PATIENT) 38.8 SEC (24.3-30.1); INTERNATIONAL NORMALIZED RATIO 2.4 RATIO; PROTHROMBIN TIME - PATIENT 27.5 SEC (9.8-11.6)
[2017-03-12 20:00] VITALS: BP 124/65; PULSE 80; RESP 20; TEMP 97.2; O2SAT 94
[2017-03-12] MEDS: LEFLUNOMIDE 20 MG PO SCH (20:33)
[2017-03-12] MEDS: ACETAMINOPHEN/HYDROcodone 325 MG/5 MG TAB PO PRN (20:34)
[2017-03-12] MEDS: HEPARIN-D5W 25,000 U/250 ML 250 ML IV SCH (20:51)
[2017-03-13] VITALS: BP 93/45; PULSE 82; RESP 18; TEMP 96.6; O2SAT 82; O2SAT 93
[2017-03-13 03:57] LABS: POTASSIUM 4.2 MEQ/L (3.5-5.1)
[2017-03-13 03:59] LABS: AUTOMATED NEUTROPHIL # 2.3 TH/MM3 (1.8-7.7); BASOPHIL % 1.1 % (0.0-2.0); EOSINOPHIL # 0.2 TH/MM3 (0-0.4); EOSINOPHIL % 4.3 % (0.0-4.0); HEMO FLAGS DIFF FINAL; LYMPH % 29.3 % (9.0-44.0); LYMPHOCYTE # 1.2 TH/MM3 (1.0-4.8); MEAN CELL VOLUME 101.9 FL (80.0-100.0); MEAN CORPUSCULAR HEMOGLOBIN 33.3 PG (27.0-34.0); MEAN CORPUSCULAR HGB CONC 32.7 % (32.0-36.0); MONO % 12.5 % (0.0-8.0); NEUT % 52.8 % (16.0-70.0); PLATELET COUNT 143 TH/MM3 (150-450); RED BLOOD COUNT 2.46 MIL/MM3 (4.50-5.90); RED CELL DISTRIBUTION WIDTH 14.6 % (11.6-17.2); WHITE BLOOD COUNT 4.2 TH/MM3 (4.0-11.0)
[2017-03-13 04:00] VITALS: BP 96/52; PULSE 80; RESP 18; TEMP 97.9; O2SAT 96
[2017-03-13 04:00] LABS: BICARBONATE 20.7 MEQ/L (21.0-32.0); MAGNESIUM 1.8 MG/DL (1.5-2.5)
[2017-03-13 04:02] LABS: APTT (PATIENT) 57.9 SEC (24.3-30.1)
[2017-03-13] MEDS: ACETAMINOPHEN/HYDROcodone 325 MG/5 MG TAB PO PRN ×3 (04:23→21:08)
[2017-03-13] MEDS: SODIUM CHLORIDE 0.9% FLUSH 10 ML FLUSH IV FLUSH SCH ×2 (07:49→20:59)
[2017-03-13] MEDS: SPIRONOLACTONE 25 MG TAB PO SCH (09:00)
[2017-03-13 09:07] VITALS: BP 94/44; PULSE 57; RESP 16; TEMP 97.4
[2017-03-13 11:49] LABS: APTT (PATIENT) 65.1 SEC (24.3-30.1); INTERNATIONAL NORMALIZED RATIO 1.9 RATIO; PROTHROMBIN TIME - PATIENT 21.5 SEC (9.8-11.6)
--- NOTE | 2017-03-13 11:53 | HHI.PR ---
Subjective Remarks Patient complaining of 2 out of 10 epigastric pain, improved after receiving K[place]. Denies nausea vomiting or diarrhea. The patient underwent hidascan this morning. He denies any chest pain or shortness of breath. Objective Vitals Vital Signs Date Time Temp Pulse Resp B/P Pulse Ox O2 Delivery O2 Flow Rate FiO2 03/13/17 09:07 97.4 57 16 94/44 03/13/17 04:00 97.9 80 18 96/52 96 03/13/17 00:00 96.6 82 18 93/45 93 03/12/17 20:00 97.2 80 20 124/65 94 03/12/17 16:00 96.9 85 20 119/54 98 03/12/17 12:00 97.1 63 18 104/56 95 I/O 03/12/17 03/12/17 03/12/17 03/13/17 03/13/17 03/13/17 06:59 14:59 22:59 06:59 14:59 22:59 Intake Total 150 ml 712 ml 0 ml Balance 150 ml 712 ml 0 ml Intake Oral 150 ml 710 ml IV Total 2 ml 0 ml # Voids 3 6 0 # Bowel Movements 3 Result Diagram: 03/13/17 0335 03/13/17 033 Objective Remarks GENERAL: Well-nourished, well-developed pleasant lean elderly male patient. SKIN: Warm and dry. HEAD: Normocephalic. EYES: No scleral icterus. No injection or drainage. NECK: Supple, trachea midline. No JVD or lymphadenopathy. CARDIOVASCULAR: Regular rate and rhythm without murmurs, gallops, or rubs. RESPIRATORY: Breath sounds equal and clear to auscultation bilaterally. No accessory muscle use. GASTROINTESTINAL: Bowel sounds normoactive. Abdomen is scaphoid, soft, non- tender, nondistended. EXTREMITIES: No pedal edema. NEUROLOGICAL: Awake, alert, and oriented x 3. Non-focal. A/P Problem List: (1) Acute hyperkalemia ICD Code: E87.5 Status: Acute (2) Abdominal pain ICD Code: R10.9 Status: Acute (3) Weight loss ICD Code: R63.4 Status: Acute Assessment and Plan -Hyperkalemia, resolved after discontinuing potassium supplementation. Of note patient is also on spironolactone and lisinopril for cardiomyopathy. Potassium has been normal. -Ongoing epigastric pain, for endoscopy tomorrow pending repeat INR. -History of mitral and tricuspid valve repair. -Cardiomyopathy, chronic systolic CHF - followed by Dr. Clark. Consider 2-D echocardiogram. Hold lisinopril and spironolactone secondary to hypotension this morning. -Paroxysmal atrial fibrillation. Hold Coumadin for now pending GI procedure, continue heparin drip. Continue amiodarone, digoxin. -Peripheral arterial disease on Coumadin and Plavix. -Hypotension likely secondary to nothing by mouth status. Hold blood pressure medications. -GERD, continue PPI. -DVT prophylaxis -heparin drip. on heparin drip. Discharge Planning Home with home health when stable for DC. Problem Qualifiers (1) Abdominal pain: Qualified Code: R10.10 - Pain of upper abdomen Brittany Khan MD Mar 13, 2017 11:53
--- NOTE | 2017-03-13 11:57 | RADRPT ---
EXAM DATE/TIME: 03/13/2017 08:52 [facility] COMPARISON: CT ABDOMEN & PELVIS W/O CONTRAST, March 11, 2017, 22:51. No previous studies available for comparis on. INDICATIONS : Right upper quadrant abdominal pain with nausea and weight loss. DOSE: 4.1 mCi Tc99m Mebrofenin IV MEDICAL HISTORY : Chronic obstructive pulmonary disease. Hypertension. Congestive heart failure. Cardiomyopathy, atrial fibrillation and gallstones. SURGICAL HISTORY : Carotid endarterectomy. Total knee replacement, right. Mitral and tricuspid valve repair. ENCOUNTER: Initial ACUITY: 4 - 6 days PAIN SCALE: 2/10 LOCATION: Right upper quadrant TECHNIQUE: Following the intravenous administration of radiotracer, dynamic sequential images were performed wit h continuous acquisition. FINDINGS: HEPATIC KINETICS: There is prompt uptake of radiotracer in the liver. No focal defects are seen. There is normal rate of washout from the hepatic parenchyma. BILIARY CLEARANCE: Activity first seen in 10 minutes. GALLBLADDER: Gallbladder is visualized at 10 minutes. With minimal activity in the small bowel at 15 minutes. BILIARY ENTRIC REFLUX: None observed. CONCLUSION: There is no evidence for cystic duct or common duct obstruction. Appearance of the small bowel is no t as prominent as one would expect. MRCP may be of benefit. Syed Jeong MD FACR on March 13, 2017 at 11:54 Board Certified Radiologist. This report was verified electronically.
[2017-03-13] MEDS ORDERED: PEG (High)/E-LYTE SOLN 4000 ML BTL PO ONE ×2 (12:00→16:00)
[2017-03-13 13:40] LABS: TRANSFERRIN IRON PROFILE 201 MG/DL (200-360)
[2017-03-13] MEDS: AMIODARONE 200 MG TAB PO SCH (13:42)
[2017-03-13] MEDS: DOCUSATE SODIUM 50 MG/SENNA 8.6 MG TAB PO SCH ×2 (13:42→21:00)
[2017-03-13] MEDS: LEFLUNOMIDE 20 MG PO SCH (13:42)
[2017-03-13 13:43] LABS: FERRITIN 295 NG/ML (26-388)
[2017-03-13] MEDS: PRAVASTATIN SOD 20 MG TAB PO SCH (13:43)
[2017-03-13] MEDS: CLOPIDOGREL 75 MG TAB PO SCH (13:43)
[2017-03-13] MEDS: PANTOPRAZOLE SOD 40 MG DELAYED RELEASE TAB PO SCH (13:43)
[2017-03-13] MEDS: BUMETANIDE 1 MG TAB PO SCH (13:43)
[2017-03-13] MEDS: DIGOXIN 0.125 MG TAB PO SCH (13:43)
[2017-03-13 16:00] VITALS: BP 97/54; PULSE 52; RESP 20; TEMP 97.3; O2SAT 95
[2017-03-13 20:00] VITALS: BP 141/65; PULSE 67; RESP 16; TEMP 95.4; O2SAT 96
[2017-03-13] MEDS: HEPARIN-D5W 25,000 U/250 ML 250 ML IV SCH (21:14)
--- NOTE | 2017-03-13 22:47 | HHI.GIFU ---
Subjective Remarks laying in bed, still some abdominal pain in the mid epigastric area, HIDA no cystic duct or CBD obstruction, Objective Vitals I&O Vital Signs Date Time Temp Pulse Resp B/P Pulse Ox O2 Delivery O2 Flow Rate FiO2 03/13/17 20:00 95.4 67 16 141/65 96 03/13/17 16:00 97.3 52 20 97/54 95 03/13/17 09:07 97.4 57 16 94/44 03/13/17 04:00 97.9 80 18 96/52 96 03/13/17 00:00 96.6 82 18 93/45 93 I/O 03/12/17 03/12/17 03/12/17 03/13/17 03/13/17 03/13/17 07:00 15:00 23:00 07:00 15:00 23:00 Intake Total 150 ml 712 ml 0 ml Balance 150 ml 712 ml 0 ml Intake Oral 150 ml 710 ml IV Total 2 ml 0 ml # Voids 3 6 0 # Bowel Movements 3 Laboratory Laboratory Tests Test 03/13/17 03/13/17 03:35 11:30 White Blood Count 4.2 Red Blood Count 2.46 Hemoglobin 8.2 Hematocrit 25.0 Mean Corpuscular Volume 101.9 Mean Corpuscular Hemoglobin 33.3 Mean Corpuscular Hemoglobin 32.7 Concent Red Cell Distribution Width 14.6 Platelet Count 143 Mean Platelet Volume 7.3 Neutrophils (%) (Auto) 52.8 Lymphocytes (%) (Auto) 29.3 Monocytes (%) (Auto) 12.5 Eosinophils (%) (Auto) 4.3 Basophils (%) (Auto) 1.1 Neutrophils # (Auto) 2.3 Lymphocytes # (Auto) 1.2 Monocytes # (Auto) 0.5 Eosinophils # (Auto) 0.2 Basophils # (Auto) 0.0 CBC Comment DIFF FINAL Differential Comment Activated Partial 57.9 65.1 Thromboplast Time Sodium Level 141 Potassium Level 4.2 Chloride Level 113 Carbon Dioxide Level 20.7 Anion Gap 7 Blood Urea Nitrogen 48 Creatinine 1.70 Estimat Glomerular Filtration 39 Rate Random Glucose 81 Calcium Level 8.8 Magnesium Level 1.8 Iron Level 101 Total Iron Binding Capacity 281 Percent Iron Saturation 35.9 Ferritin 295 Prothrombin Time 21.5 Prothromb Time International 1.9 Ratio Date/Time Procedure Status Source Growth 03/13/17 21:47 Stool Occult Blood ([facility]ENI) Received Stool Stool Pending 03/13/17 21:47 Giardia Antigen ([facility]I) Received Stool Stool Pending 03/13/17 21:47 Received Stool Stool Pending Physical Exam HEENT: Pupils round and reactive to light; normocephalic; atraumatic; no jaundice. Throat is clear. NECK: Neck is supple, no JVD, no lymphadenopathy. CHEST: Chest is clear to auscultation and percussion. CARDIAC: Regular rate and rhythm with no murmur gallop or rubs. ABDOMEN: Soft, nondistended, mild upper abdominal mid epigastric tenderness; no hepatosplenomegaly; bowel sounds are present in all four quadrants. EXTREMITIES: No clubbing, cyanosis, or edema. SKIN: Normal; no rash; no jaundice. IP PARALEGAL: No focal deficits; alert and oriented times three. Assessment and Plan Plan anemia, weight loss, ine 2.9. plan colon EGD in am HIDA no sign of obstruction in combination with nl lfts i do not see a reason for MRCP, we will consider after EGD/ Colon results Shireen Andino MD Mar 13, 2017 22:47
[2017-03-14] VITALS (10 sets, daily range): BP systolic 119–137; BP diastolic 50–97; PULSE 48–71; RESP 16–18; TEMP 95.5–98.6; O2SAT 81–99
[2017-03-14] MEDS: ACETAMINOPHEN/HYDROcodone 325 MG/5 MG TAB PO PRN ×3 (02:54→22:57)
[2017-03-14 06:37] LABS: C. DIFF EPI 027 PRESUMPTIVE NEGATIVE (NEGATIVE)
[2017-03-14] MEDS: DIGOXIN 0.125 MG TAB PO SCH (09:03)
[2017-03-14] MEDS: PANTOPRAZOLE SOD 40 MG DELAYED RELEASE TAB PO SCH (09:03)
[2017-03-14] MEDS: PRAVASTATIN SOD 20 MG TAB PO SCH (09:03)
[2017-03-14] MEDS: AMIODARONE 200 MG TAB PO SCH (09:03)
[2017-03-14] MEDS: DOCUSATE SODIUM 50 MG/SENNA 8.6 MG TAB PO SCH ×2 (09:03→22:57)
[2017-03-14] MEDS: BUMETANIDE 1 MG TAB PO SCH (09:04)
[2017-03-14] MEDS: LEFLUNOMIDE 20 MG PO SCH (09:04)
--- NOTE | 2017-03-14 11:55 | HHI.GIFU ---
Subjective Remarks EGD and colonoscopy to TI normal except distal possible barretts esophagus. No apparent complication. Objective Vitals I&O Vital Signs Date Time Temp Pulse Resp B/P Pulse Ox O2 Delivery O2 Flow Rate FiO2 03/14/17 09:10 98.6 52 18 119/54 81 03/14/17 08:30 99 03/14/17 08:12 81 03/14/17 03:07 97.5 57 17 123/58 98 03/14/17 00:00 95.5 71 18 130/80 96 03/13/17 20:00 95.4 67 16 141/65 96 03/13/17 16:00 97.3 52 20 97/54 95 I/O 03/13/17 03/13/17 03/13/17 03/14/17 03/14/17 03/14/17 07:00 15:00 23:00 07:00 15:00 23:00 Intake Total 32 ml 32 ml Balance 32 ml 32 ml IV Total 32 ml 32 ml Laboratory Laboratory Tests Test 03/13/17 21:47 Stool C. difficile Toxin (PCR) NEGATIVE Stl C. difficile Toxin PRESUMPTIVE Epiderm 027 NEGATIVE Date/Time Procedure Status Source Growth 03/13/17 21:47 Stool Occult Blood ([facility]ENI) - Final Complete Stool Stool HEMOCCULT NEGATIVE 03/13/17 21:47 Giardia Antigen ([facility]I) Received Stool Stool Pending 03/13/17 21:47 - Final Complete Stool Stool NO ENTERIC PATHOGENS DETECTED BY PCR... Physical Exam HEENT: Pupils round and reactive to light; normocephalic; atraumatic; no jaundice. Throat is clear. NECK: Neck is supple, no JVD, no lymphadenopathy. CHEST: Chest is clear to auscultation and percussion. CARDIAC: Regular rate and rhythm with no murmur gallop or rubs. ABDOMEN: Soft, nondistended, mild upper abdominal mid epigastric tenderness; no hepatosplenomegaly; bowel sounds are present in all four quadrants. EXTREMITIES: No clubbing, cyanosis, or edema. SKIN: Normal; no rash; no jaundice. 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 Assessment and Plan Plan anemia, weight loss, ine 2.9. EGD and colonoscopy negative for bleeding site or cause for pain. Consider MRCP. Will review and advise. Steve Bob MD Mar 14, 2017 11:55
[2017-03-14] MEDS ORDERED: DO NOT ADM ANY ANTICOAGULANT DRUGS PRN (12:00)
[2017-03-14] MEDS ORDERED: PROPOFOL 200 MG/20 ML AMP IV ONE (12:07)
[2017-03-14] MEDS: CLOPIDOGREL 75 MG TAB PO SCH (12:55)
[2017-03-14] MEDS: SODIUM CHLORIDE 0.9% FLUSH 10 ML FLUSH IV FLUSH SCH ×2 (12:55→22:57)
[2017-03-14 15:07] LABS: APTT (PATIENT) 35.7 SEC (24.3-30.1); INTERNATIONAL NORMALIZED RATIO 1.8 RATIO; PROTHROMBIN TIME - PATIENT 20.4 SEC (9.8-11.6)
[2017-03-14 15:29] LABS: FREE T4 0.42 NG/DL (0.76-1.46)
--- NOTE | 2017-03-14 19:28 | HHI.PR ---
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 HIDA scan shows a less prominent small bowel appearance than expected but no signs of obstruction. MRCP has been recommended and is ordered. Hypothyroidism is present and fairly severe. Hypothyroidism could potentially cause the patient GI symptoms. Objective Vital Signs Date Time Temp Pulse Resp B/P Pulse Ox O2 Delivery O2 Flow Rate FiO2 03/14/17 17:50 16 03/14/17 17:36 95.8 60 16 121/50 97 03/14/17 16:50 95.8 60 16 121/97 97 03/14/17 16:39 97.6 61 18 137/55 96 03/14/17 16:03 56 03/14/17 12:25 50 16 116/88 96 Room Air 03/14/17 12:15 51 16 132/61 96 Room Air 03/14/17 12:00 97.7 51 16 109/53 95 Room Air 03/14/17 09:10 98.6 52 18 119/54 81 03/14/17 08:30 99 03/14/17 08:12 81 03/14/17 03:07 97.5 57 17 123/58 98 03/14/17 00:00 95.5 71 18 130/80 96 03/13/17 20:00 95.4 67 16 141/65 96 I/O 03/13/17 03/13/17 03/13/17 03/14/17 03/14/17 03/14/17 06:59 14:59 22:59 06:59 14:59 22:59 Intake Total 32 ml 32 ml 600 ml Output Total 4 ml Balance 32 ml 32 ml 596 ml IV Total 32 ml 32 ml 100 ml Other 500 ml Output Urine Total 4 ml Estimated Blood Loss 0 ml Result Diagram: 03/13/17 0335 03/13/17 0335 Objective Remarks GENERAL: NAD, A&Ox3 HEAD: Normocephalic. NECK: Supple, trachea midline. No lymphadenopathy. EYES: No scleral icterus. No injection or drainage. CARDIOVASCULAR: Regular rate and rhythm without murmurs, gallops, or rubs. RESPIRATORY: Breath sounds equal bilaterally. No accessory muscle use. GASTROINTESTINAL: Abdomen soft, non-tender, nondistended. MUSCULOSKELETAL: No cyanosis, or edema. SKIN: Warm and dry. Pallor. NEURO: No focal neurological deficitis. A/P Problem List: (1) Acute hyperkalemia ICD Code: E87.5 (2) Weight loss ICD Code: R63.4 (3) Abdominal pain ICD Code: R10.9 Assessment and Plan Assessment and plan 82-year-old male admitted secondary to epigastric pain, hyperkalemia, anemia, and attend a 10 to 15 pound weight loss in the past month. History of mitral and tricuspid valve repair Peripheral artery disease Paroxysmal atrial fibrillation Continue anticoagulation When no further workup is present resume chronic anticoagulation, then stop heparin Follow INR Resume Coumadin and Plavix at point were no further workup or procedures would be planned Continue amiodarone and digoxin Cardiomyopathy chronic systolic CHF Holding lisinopril Holding spironolactone Follow blood pressures Hypotension Holding blood pressure treatments Follow blood pressures Currently stable Gastroesophageal reflux disease Continue PPI DVT prophylaxis Heparin Hyperkalemia Resolved follow for recurrence Discharge Planning Home with home health when stable for DC. Problem Qualifiers (1) Abdominal pain: Qualified Code: R10.10 - Pain of upper abdomen Lj Valladares MD Mar 14, 2017 19:28
[2017-03-14 23:48] LABS: APTT (PATIENT) 43.4 SEC (24.3-30.1)
[2017-03-15] VITALS (9 sets, daily range): BP systolic 90–138; BP diastolic 42–59; PULSE 46–84; RESP 16–20; TEMP 96.3–97.7; O2SAT 94–98
[2017-03-15] MEDS ORDERED: LEVOTHYROXINE SODIUM 100 MCG VIAL IV PUSH ONE (00:15)
--- NOTE | 2017-03-15 00:21 | HHI.PR ---
Addendum to Inpatient Note Addendum Reason: Additional Documentation Additional Information Patient with a 2 second pause on telemetry. He is asymptomatic with stable vital signs. The patient is severely hypothyroid and we will replace with Synthroid 25 mcg IV tonight. Per nursing, the patient also had a 2 second pause at 1300 yesterday. I recommend consideration of cardiology consult at the discretion of the primary rounding physician. I will also check BMP, Magnesium, CBC and follow results. Victorina Barber Mar 15, 2017 00:21
[2017-03-15 01:08] LABS: AUTOMATED NEUTROPHIL # 2.2 TH/MM3 (1.8-7.7); BASOPHIL % 0.4 % (0.0-2.0); EOSINOPHIL # 0.2 TH/MM3 (0-0.4); EOSINOPHIL % 4.1 % (0.0-4.0); HEMO FLAGS DIFF FINAL; LYMPHOCYTE # 1.1 TH/MM3 (1.0-4.8); MEAN CORPUSCULAR HEMOGLOBIN 35.3 PG (27.0-34.0); MEAN CORPUSCULAR HGB CONC 34.6 % (32.0-36.0); MONO % 12.7 % (0.0-8.0); NEUT % 54.8 % (16.0-70.0); PLATELET COUNT 126 TH/MM3 (150-450); RED BLOOD COUNT 2.45 MIL/MM3 (4.50-5.90); RED CELL DISTRIBUTION WIDTH 14.7 % (11.6-17.2); WHITE BLOOD COUNT 4.1 TH/MM3 (4.0-11.0)
[2017-03-15 01:11] LABS: BICARBONATE 22.1 MEQ/L (21.0-32.0); MAGNESIUM 1.8 MG/DL (1.5-2.5); POTASSIUM 3.8 MEQ/L (3.5-5.1)
[2017-03-15] MEDS: LEVOTHYROXINE SODIUM 125 MCG TAB PO SCH (05:09)
[2017-03-15 05:37] LABS: HEMATOCRIT 23.4 % (39.0-51.0); MEAN CELL VOLUME 103.3 FL (80.0-100.0); MEAN CORPUSCULAR HGB CONC 32.9 % (32.0-36.0); PLATELET COUNT 118 TH/MM3 (150-450); RED BLOOD COUNT 2.27 MIL/MM3 (4.50-5.90); RED CELL DISTRIBUTION WIDTH 14.8 % (11.6-17.2); REVIEW FLAG FINAL; WHITE BLOOD COUNT 3.5 TH/MM3 (4.0-11.0)
[2017-03-15 05:55] LABS: APTT (PATIENT) 63.3 SEC (24.3-30.1); INTERNATIONAL NORMALIZED RATIO 1.8 RATIO; PROTHROMBIN TIME - PATIENT 19.9 SEC (9.8-11.6)
[2017-03-15 06:09] LABS: BICARBONATE 22.9 MEQ/L (21.0-32.0); POTASSIUM 3.9 MEQ/L (3.5-5.1)
[2017-03-15] MEDS: PANTOPRAZOLE SOD 40 MG DELAYED RELEASE TAB PO SCH (08:29)
[2017-03-15] MEDS: PRAVASTATIN SOD 20 MG TAB PO SCH (08:29)
[2017-03-15] MEDS: AMIODARONE 200 MG TAB PO SCH (08:29)
[2017-03-15] MEDS: DOCUSATE SODIUM 50 MG/SENNA 8.6 MG TAB PO SCH ×2 (08:29→21:56)
[2017-03-15] MEDS: BUMETANIDE 1 MG TAB PO SCH (08:30)
[2017-03-15] MEDS: CLOPIDOGREL 75 MG TAB PO SCH (08:30)
[2017-03-15] MEDS: SODIUM CHLORIDE 0.9% FLUSH 10 ML FLUSH IV FLUSH SCH ×2 (09:00→21:56)
[2017-03-15] MEDS: DIGOXIN 0.125 MG TAB PO SCH (09:00)
--- NOTE | 2017-03-15 10:10 | RADRPT ---
EXAM DATE/TIME: 03/15/2017 08:56 [facility] COMPARISON: CT ABDOMEN & PELVIS W/O CONTRAST, March 11, 2017, 22:51. INDICATIONS : Abdominal pain. MEDICAL HISTORY : Hypertension. Chronic obstructive pulmonary disease. Congestive heart failure. SURGICAL HISTORY : Carotid endarterectomy. Total knee replacement, right. Heart valve replacement. ENCOUNTER: Initial ACUITY: 2 day PAIN SCORE: 4/10 LOCATION: abdomen TECHNIQUE: Multiplanar, multisequence magnetic resonance imaging of the abdomen was performed. High-resolution 3D dataset was utilized to reconstruct maximum-intensity projection (MIP) images. FINDINGS: INTRAHEPATIC BILE DUCTS: Within normal limits. No significant anatomical variant is present. EXTRAHEPATIC BILE DUCTS: The common bile duct measures 5 mm No stone or filling defect is identified. GALLBLADDER: Multiple stones. No wall thickening or pericholecystic fluid LIVER: Normal size and signal intensity. No concerning liver lesion is identified on this non-contrast exam. PANCREAS: The main pancreatic duct is normal in size. There is no significant anatomical variant. Signal inte nsity is within normal limits. No mass is visualized on this non-contrast exam. OTHER: The remaining visualized structures demonstrate no acute abnormality on this non-contrast exam. CONCLUSION: Gallstones. Otherwise unremarkable Gonsalo Nam MD on March 15, 2017 at 10:05 Board Certified Radiologist. This report was verified electronically.
--- NOTE | 2017-03-15 11:18 | HHI.PR ---
Subjective Remarks states still having epigastric discomfort, no nausea or vomiting + stools from bowel prep patient with no complains of dizziness or chest pains telemetry- sinus with sinus pause- on review of meds on digopxin q0D and amiodarone states ff up with Dr. Clark Objective Vitals Vital Signs Date Time Temp Pulse Resp B/P Pulse Ox O2 Delivery O2 Flow Rate FiO2 03/15/17 07:50 97.2 51 20 138/59 96 03/15/17 05:42 97.4 55 16 104/46 94 03/15/17 04:00 46 03/15/17 00:00 97.5 55 16 90/42 94 03/15/17 00:00 84 03/14/17 22:14 53 03/14/17 20:07 48 03/14/17 20:00 97.2 63 16 129/57 99 03/14/17 17:50 16 03/14/17 17:36 95.8 60 16 121/50 97 03/14/17 16:50 95.8 60 16 121/97 97 03/14/17 16:39 97.6 61 18 137/55 96 03/14/17 16:03 56 03/14/17 12:25 50 16 116/88 96 Room Air 03/14/17 12:15 51 16 132/61 96 Room Air 03/14/17 12:00 97.7 51 16 109/53 95 Room Air I/O 03/14/17 03/14/17 03/14/17 03/15/17 03/15/17 03/15/17 06:59 14:59 22:59 06:59 14:59 22:59 Intake Total 32 ml 600 ml 420 ml 280 ml Output Total 4 ml 400 ml 150 ml Balance 32 ml 596 ml 20 ml 130 ml Intake Oral 350 ml 200 ml IV Total 32 ml 100 ml 70 ml 80 ml Other 500 ml Output Urine Total 4 ml 400 ml 150 ml Estimated Blood Loss 0 ml # Bowel Movements 0 0 Result Diagram: 03/15/17 0526 03/15/17 0526 Imaging Last Impressions Cholangiopancreatography MRI 03/15/17 0000 Signed Impressions: Service Date/Time: Wednesday, March 15, 2017 08:56 - CONCLUSION: Gallstones. Otherwise unremarkable Gonsalo Nam MD Hepatobiliary Scan Nuclear Medicine 03/13/17 0000 Signed Impressions: Service Date/Time: Monday, March 13, 2017 08:52 - CONCLUSION: There is no evidence for cystic duct or common duct obstruction. Appearance of the small bowel is not as prominent as one would expect. MRCP may be of benefit. Syed Jeong MD FACR Abdomen/Pelvis CT 03/11/17 0000 Signed Impressions: Service Date/Time: Saturday, March 11, 2017 22:51 - CONCLUSION: 1. No evidence of acute abdominal or pelvic process. No masses are identified. 2. Cholelithiasis Christopher Ames MD Objective Remarks awake and alert, nAD anicteric lungs clear regular rhythm, bradycardic abdomen- soft, mild tenderness on deep palpation of epigastric area extremities no edema neuro exam- non focal Procedures EGD- with duenas's esophagus colonoscopy unremarkable A/P Problem List: (1) Acute hyperkalemia ICD Code: E87.5 Status: Acute (2) Abdominal pain ICD Code: R10.9 Status: Acute (3) Weight loss ICD Code: R63.4 Status: Acute Assessment and Plan 82-year-old male admitted secondary to epigastric pain, hyperkalemia, anemia, and attend a 10 to 15 pound weight loss in the past month. History of mitral and tricuspid valve repair Peripheral artery disease Paroxysmal atrial fibrillation-- slow ventricular rate- asymptomatic - telemetry with bradycardia- pauses- we will hold digoxin for now - hypothyroidism - contributing factor- - will hold Amiodarone for now till seen by Cardiology - known to Dr. Clark Continue anticoagulation When no further workup is present resume chronic anticoagulation, then stop heparin Follow INR Resume Coumadin and Plavix Cardiomyopathy chronic systolic CHF- compensated - restart his Lisinorpil at 2.5 mg daily Holding spironolactone Follow blood pressures Cardiology consult- known to Dr. Clark Severe hypothyroidism- likely associated with amiodarone use - denies any history of thyroid disorder - started on synthroid. - no thyromegaly- but we will get a baseline thyroid US Hypotension- asymptomatic Holding blood pressure treatments Follow blood pressures Currently stable Gastroesophageal reflux disease Continue PPI bid get lipase level Gallstones- ? incidental -if persistent abdominal epigastric discomfort- consider GS consult for evaluation DVT prophylaxis Heparin Hyperkalemia Resolved follow for recurrence Chronic kidney insufficiency -renal functions near baseline patient up and ambulating Problem Qualifiers (1) Abdominal pain: Qualified Code: R10.10 - Pain of upper abdomen Vipin Ferguson MD Mar 15, 2017 11:18
[2017-03-15 11:46] LABS: APTT (PATIENT) 32.8 SEC (24.3-30.1)
--- NOTE | 2017-03-15 12:43 | RADRPT ---
EXAM DATE/TIME: 03/15/2017 11:42 [place] COMPARISON: No previous studies available for comparison. INDICATIONS : Abnormal thyroid function tests. MEDICAL HISTORY : CAD, Hypercholesterol. Afib. Hypertension. COPD. SURGICAL HISTORY : Cardiac surgery. ENCOUNTER: Initial ACUITY: 1 day PAIN SCORE: 6/10 LOCATION: Bilateral neck MEASUREMENTS: RIGHT LOBE: 5.0 x 2.3 x 2.0 cm LEFT LOBE: 4.2 x 1.4 x 2.1 cm FINDINGS: RIGHT LOBE: Diffusely heterogeneous echotexture. Small for a well-circumscribed oval hypoechoic nodule in the lat eral lower aspect of the lobe measures about 7-8 mm. LEFT LOBE: Markedly heterogeneous throughout. No discrete masses. ISTHMUS: Thickened and heterogeneous CONCLUSION: Partly heterogeneous thyroid throughout. Small hypoechoic nodule on the right should be followed. Gonsalo Nam MD on March 15, 2017 at 12:39 Board Certified Radiologist. This report was verified electronically.
--- NOTE | 2017-03-15 13:52 | HHI.GIFU ---
Subjective Remarks Ambulating in room. States he continues to have constant mid abdominal pain- dull ache. No nausea or vomiting. Eating okay. Moving bowels. Objective Vitals I&O Vital Signs Date Time Temp Pulse Resp B/P Pulse Ox O2 Delivery O2 Flow Rate FiO2 03/15/17 11:30 96.3 53 20 107/54 98 03/15/17 08:00 51 03/15/17 07:50 97.2 51 20 138/59 96 03/15/17 05:42 97.4 55 16 104/46 94 03/15/17 04:00 46 03/15/17 00:00 97.5 55 16 90/42 94 03/15/17 00:00 84 03/14/17 22:14 53 03/14/17 20:07 48 03/14/17 20:00 97.2 63 16 129/57 99 03/14/17 17:50 16 03/14/17 17:36 95.8 60 16 121/50 97 03/14/17 16:50 95.8 60 16 121/97 97 03/14/17 16:39 97.6 61 18 137/55 96 03/14/17 16:03 56 I/O 03/14/17 03/14/17 03/14/17 03/15/17 03/15/17 03/15/17 07:00 15:00 23:00 07:00 15:00 23:00 Intake Total 32 ml 600 ml 420 ml 280 ml Output Total 4 ml 400 ml 150 ml Balance 32 ml 596 ml 20 ml 130 ml Intake Oral 350 ml 200 ml IV Total 32 ml 100 ml 70 ml 80 ml Other 500 ml Output Urine Total 4 ml 400 ml 150 ml Estimated Blood Loss 0 ml # Bowel Movements 0 0 Laboratory Laboratory Tests Test 03/14/17 03/14/17 03/15/17 03/15/17 14:08 23:31 00:51 05:26 Prothrombin Time 20.4 19.9 Prothromb Time International 1.8 1.8 Ratio Activated Partial 35.7 43.4 63.3 Thromboplast Time Free Thyroxine 0.42 Free Triiodothyronine (T3) 2.00 pg/dL Thyroid Stimulating Hormone 61.900 3rd Gen White Blood Count 4.1 3.5 Red Blood Count 2.45 2.27 Hemoglobin 8.7 7.7 Hematocrit 25.0 23.4 Mean Corpuscular Volume 102.0 103.3 Mean Corpuscular Hemoglobin 35.3 34.0 Mean Corpuscular Hemoglobin 34.6 32.9 Concent Red Cell Distribution Width 14.7 14.8 Platelet Count 126 118 Mean Platelet Volume 7.4 7.6 Neutrophils (%) (Auto) 54.8 Lymphocytes (%) (Auto) 28.0 Monocytes (%) (Auto) 12.7 Eosinophils (%) (Auto) 4.1 Basophils (%) (Auto) 0.4 Neutrophils # (Auto) 2.2 Lymphocytes # (Auto) 1.1 Monocytes # (Auto) 0.5 Eosinophils # (Auto) 0.2 Basophils # (Auto) 0.0 CBC Comment DIFF FINAL Differential Comment Sodium Level 141 143 Potassium Level 3.8 3.9 Chloride Level 111 113 Carbon Dioxide Level 22.1 22.9 Anion Gap 8 7 Blood Urea Nitrogen 32 31 Creatinine 1.67 1.54 Estimat Glomerular Filtration 40 44 Rate Random Glucose 120 92 Calcium Level 8.9 8.8 Magnesium Level 1.8 Test 03/15/17 11:20 Activated Partial 32.8 Thromboplast Time Date/Time Procedure Status Source Growth 03/13/17 21:47 Stool Occult Blood (YENI) - Final Complete Stool Stool HEMOCCULT NEGATIVE 03/13/17 21:47 Giardia Antigen (YENI) Received Stool Stool Pending 03/13/17 21:47 - Final Complete Stool Stool NO ENTERIC PATHOGENS DETECTED BY PCR... Imaging Last Impressions Thyroid Ultrasound 03/15/17 0000 Signed Impressions: Service Date/Time: Wednesday, March 15, 2017 11:42 - CONCLUSION: Partly heterogeneous thyroid throughout. Small hypoechoic nodule on the right should be followed. Gonsalo Nam MD Cholangiopancreatography MRI 03/15/17 0000 Signed Impressions: Service Date/Time: Wednesday, March 15, 2017 08:56 - CONCLUSION: Gallstones. Otherwise unremarkable Gonsalo Nam MD Hepatobiliary Scan Nuclear Medicine 03/13/17 0000 Signed Impressions: Service Date/Time: Monday, March 13, 2017 08:52 - CONCLUSION: There is no evidence for cystic duct or common duct obstruction. Appearance of the small bowel is not as prominent as one would expect. MRCP may be of benefit. Syed Jeong MD FACR Abdomen/Pelvis CT 03/11/17 0000 Signed Impressions: Service Date/Time: Saturday, March 11, 2017 22:51 - CONCLUSION: 1. No evidence of acute abdominal or pelvic process. No masses are identified. 2. Cholelithiasis Christopher Ames MD Physical Exam HEENT: Normocephalic; atraumatic; no jaundice. CHEST: CTA CARDIAC: RRR ABDOMEN: Soft, nondistended, mild upper abdominal mid epigastric tenderness; no hepatosplenomegaly; bowel sounds are present in all four quadrants. EXTREMITIES: No clubbing, cyanosis, or edema. SKIN: Normal; no rash; no jaundice. WREATH MACHINE TENDER: No focal deficits; alert and oriented times three. Assessment and Plan Plan ASSESSMENT: - Abdominal pain. C/O constant mid/epigastric dull ache. No n/v. Tolerating diet. Abdomen/Pelvis CT (03/11/17)-----> 1. No evidence of acute abdominal or pelvic process. No masses are identified. 2. Cholelithiasis. HIDA (03/13/17)----> There is no evidence for cystic duct or common duct obstruction. Appearance of the small bowel is not as prominent as one would expect. MRCP may be of benefit. MRCP (03/15/17)----> Gallstones. Otherwise unremarkable. S/P EGD/Colonoscopy ( 03/14/17)---> distal esophagus with possible Barretts, colonoscopy to terminal ileum normal. He continues to have abdominal pain. PPI - Anemia. 7.7/23.4. No obvious blood loss. Capsule endoscopy as outpatient. - Abnormal weight loss. Imaging/EGD/Colonoscopy as above. - HENRRY. Creat 1.54 - Hypothyroidism, per attending. PLAN: - FLAVIO - PPI - Monitor HH - Transfuse as necessary - Capsule endoscopy as outpatient - Pt seen and examined by Dr. Bob and myself and this note is written on his behalf Jennifer Vanec Mar 15, 2017 13:52
[2017-03-15] MEDS ORDERED: PILL SPLITTER OTHER PRN (15:15)
[2017-03-15] MEDS: LISINOPRIL 5 MG TAB PO SCH (17:07)
[2017-03-15] MEDS: LEFLUNOMIDE 20 MG PO SCH (17:07)
[2017-03-15] MEDS: HEPARIN-D5W 25,000 U/250 ML 250 ML IV SCH (17:11)
--- NOTE | 2017-03-15 17:27 | MB ---
cc: MARGARET HULL MD DATE OF CONSULTATION 03/15/2017 INDICATION Tricuspid regurgitation, conduction system disease. REQUESTING PHYSICIAN Dr. Blancas. CLINICAL HISTORY Mr. Jackson is an 82-year-old gentleman who is well-known to me. He has severe tricuspid regurgitation, cardiomyopathy, a history of congestive heart failure, severe peripheral arterial disease, atrial fibrillation who presents to the emergency room with abdominal discomfort. He says his symptoms have been going on for 4-6 weeks. His pain is pretty much constant. No definite exacerbating of relieving factors. Denies any complaints of chest pain. CURRENT MEDICATIONS 1. Lisinopril 2.5 daily. 2. Heparin. 3. Coumadin. 4. Amiodarone 200 daily. 5. Plavix 75 daily. 6. Lactulose p.r.n. SOCIAL HISTORY He does not smoke, does not drink. FAMILY HISTORY Noncontributory. ALLERGIES NO KNOWN DRUG ALLERGIES. REVIEW OF SYSTEMS Positive for fatigue. Positive for shortness of breath. Positive for abdominal discomfort. Other review of systems unremarkable. PHYSICAL EXAMINATION GENERAL: The patient is lying in bed in no apparent distress. VITAL SIGNS: Blood pressure is 107/54, heart rate 53, respiratory rate 18. CARDIOVASCULAR: Examination of his cardiovascular system jugular venous distention seen 2 cm above the clavicle. Heart sounds are irregular with systolic murmur of tricuspid regurgitation is heard. LUNGS: Respiratory system is clear. ABDOMEN: Mild tenderness in the epigastric area. EXTREMITIES: Trace edema. LABORATORY DATA Blood work shows hemoglobin of 7.7. White count of 3.5, platelet count of 118. Creatinine 1.54. Lipase 118. EKG shows atrial fibrillation with right ventricular conduction delay and T wave changes. IMPRESSION AND RECOMMENDATIONS Mr. Jackson is an 82-year-old complex gentleman with multiple medical problems. Currently he is stable and euvolemic from a cardiac standpoint. Would recommend continuing his outpatient medications. He needs to be restarted on Coumadin. He did have a pause of 2.8 seconds which was asymptomatic. He does have atrial fibrillation with rapid ventricular response for which he is on amiodarone which will be continued. He will be monitored clinically. From a cardiac standpoint he is otherwise stable. From a GI standpoint workup has been essentially showed some gallstones and Rosado's esophagus otherwise unremarkable. He is being scheduled for pill endoscopy. Further recommendations to follow hospital course. Thank you for letting me participate in his care. MD LEANNA Menendez/JULES /4:42 PM /5:13 PM
[2017-03-15] MEDS: ACETAMINOPHEN/HYDROcodone 325 MG/5 MG TAB PO PRN (21:56)
[2017-03-16] VITALS (7 sets, daily range): BP systolic 98–129; BP diastolic 51–63; PULSE 41–67; RESP 16–20; TEMP 96.2–97.7; O2SAT 95–97
[2017-03-16 00:35] LABS: APTT (PATIENT) 55.4 SEC (24.3-30.1)
[2017-03-16] MEDS: LEVOTHYROXINE SODIUM 125 MCG TAB PO SCH (05:34)
[2017-03-16] MEDS: ACETAMINOPHEN/HYDROcodone 325 MG/5 MG TAB PO PRN ×2 (05:35→23:11)
[2017-03-16 09:50] LABS: APTT (PATIENT) 67.4 SEC (24.3-30.1); INTERNATIONAL NORMALIZED RATIO 1.4 RATIO; PROTHROMBIN TIME - PATIENT 15.4 SEC (9.8-11.6)
[2017-03-16] MEDS: PANTOPRAZOLE SOD 40 MG DELAYED RELEASE TAB PO SCH (10:46)
[2017-03-16] MEDS: LISINOPRIL 5 MG TAB PO SCH (10:46)
[2017-03-16] MEDS: PRAVASTATIN SOD 20 MG TAB PO SCH (10:46)
--- NOTE | 2017-03-16 10:46 | HHI.PR ---
Subjective Remarks patient is persistent dully epigastric discomfort- on going for 6-8 weeks Objective Vitals Vital Signs Date Time Temp Pulse Resp B/P Pulse Ox O2 Delivery O2 Flow Rate FiO2 03/16/17 08:50 96.5 56 20 129/62 95 03/16/17 04:00 97.7 54 16 98/53 95 03/16/17 04:00 41 03/16/17 02:41 49 03/16/17 00:00 56 03/16/17 00:00 97.7 56 16 110/56 96 03/15/17 20:08 79 03/15/17 20:00 97.7 59 16 110/54 97 03/15/17 15:50 97.0 53 20 117/58 97 03/15/17 11:30 96.3 53 20 107/54 98 I/O 03/15/17 03/15/17 03/15/17 03/16/17 03/16/17 03/16/17 07:00 15:00 23:00 07:00 15:00 23:00 Intake Total 280 ml 379 ml 448 ml 450 ml Output Total 150 ml 300 ml 250 ml 150 ml Balance 130 ml 79 ml 198 ml 300 ml Intake Oral 200 ml 360 ml 360 ml 450 ml IV Total 80 ml 19 ml 88 ml Output Urine Total 150 ml 300 ml 250 ml 150 ml # Voids 2 # Bowel Movements 0 0 0 1 Result Diagram: 03/15/17 0526 03/15/17 05 Imaging Last Impressions Thyroid Ultrasound 03/15/17 0000 Signed Impressions: Service Date/Time: Wednesday, March 15, 2017 11:42 - CONCLUSION: Partly heterogeneous thyroid throughout. Small hypoechoic nodule on the right should be followed. Gonsalo Nam MD Cholangiopancreatography MRI 03/15/17 0000 Signed Impressions: Service Date/Time: Wednesday, March 15, 2017 08:56 - CONCLUSION: Gallstones. Otherwise unremarkable Gonsalo Nam MD Hepatobiliary Scan Nuclear Medicine 03/13/17 0000 Signed Impressions: Service Date/Time: Monday, March 13, 2017 08:52 - CONCLUSION: There is no evidence for cystic duct or common duct obstruction. Appearance of the small bowel is not as prominent as one would expect. MRCP may be of benefit. Syed Jeong MD FACR Abdomen/Pelvis CT 03/11/17 0000 Signed Impressions: Service Date/Time: Saturday, March 11, 2017 22:51 - CONCLUSION: 1. No evidence of acute abdominal or pelvic process. No masses are identified. 2. Cholelithiasis Christopher Ames MD Objective Remarks awake and alert, nAD anicteric lungs clear regular rhythm, bradycardic abdomen- soft, good bowel sounds, no guarding , sensation of fullness epigastric area on palpation extremities no edema neuro exam- non focal Procedures EGD- with duenas's esophagus colonoscopy unremarkable A/P Problem List: (1) Acute hyperkalemia ICD Code: E87.5 Status: Acute (2) Abdominal pain ICD Code: R10.9 Status: Acute (3) Weight loss ICD Code: R63.4 Status: Acute Assessment and Plan 82-year-old male admitted secondary to epigastric pain, hyperkalemia, anemia, and attend a 10 to 15 pound weight loss in the past month. Gallstones- -symptomatic with persistent epigastric fullness/ache --General surgery consult- please evaluate- ? candidate for lap cholecystectomy - we have cardiology on case - for clearance and ff up with us post op Gastroesophageal reflux disease MRCP with gallstones Continue PPI bid History of mitral and tricuspid valve repair Peripheral artery disease Paroxysmal atrial fibrillation-- slow ventricular rate- asymptomatic - telemetry with bradycardia- pauses- we will hold digoxin for now - hypothyroidism - contributing factor- - will hold Amiodarone for now till seen by Cardiology - known to Dr. Clark - Continue anticoagulation- Heparin drip- change to Lovenox - will hold off on coumadin till evaluated by GS- if candidate for lap cholecystectomy- -if not restart coumadin - hold Plavix till seen by GS- if candidate for surgery Cardiomyopathy chronic systolic CHF- compensated - started on Lisinopril at 2.5 mg daily Holding spironolactone Follow blood pressures Cardiology ff- known to Dr. Clark Severe hypothyroidism- likely associated with amiodarone use - denies any history of thyroid disorder. - started on synthroid.- TSH monitoring in 4-6 weeks as OP - no thyromegaly. solitary small nodule- OP ff up Hypotension- asymptomatic Holding blood pressure treatments Follow blood pressures Currently stable DVT prophylaxis Heparin Hyperkalemia Resolved follow for recurrence Chronic kidney insufficiency -renal functions near baseline patient up and ambulating Problem Qualifiers (1) Abdominal pain: Qualified Code: R10.10 - Pain of upper abdomen Vipin Ferguson MD Mar 16, 2017 10:46
[2017-03-16] MEDS: BUMETANIDE 1 MG TAB PO SCH (10:47)
[2017-03-16] MEDS: SODIUM CHLORIDE 0.9% FLUSH 10 ML FLUSH IV FLUSH SCH ×2 (10:47→21:00)
[2017-03-16] MEDS: CLOPIDOGREL 75 MG TAB PO SCH (10:47)
[2017-03-16] MEDS: LEFLUNOMIDE 20 MG PO SCH (10:47)
[2017-03-16] MEDS: DOCUSATE SODIUM 50 MG/SENNA 8.6 MG TAB PO SCH ×2 (10:47→23:10)
--- NOTE | 2017-03-16 14:40 | HHI.GIFU ---
Subjective Remarks Patient sitting up in bed eating a chicken sandwich for lunch. States his pain is much improved and he only has mild mid abdominal pain at times. No nausea or vomiting. He is moving his bowels. He reports that he is really feeling better and probably would not want any surgery even if it was recommended because of his cardiomyopathy. Objective Vitals I&O Vital Signs Date Time Temp Pulse Resp B/P Pulse Ox O2 Delivery O2 Flow Rate FiO2 03/16/17 12:25 96.2 67 19 127/63 97 03/16/17 08:50 96.5 56 20 129/62 95 03/16/17 04:00 97.7 54 16 98/53 95 03/16/17 04:00 41 03/16/17 02:41 49 03/16/17 00:00 56 03/16/17 00:00 97.7 56 16 110/56 96 03/15/17 20:08 79 03/15/17 20:00 97.7 59 16 110/54 97 03/15/17 15:50 97.0 53 20 117/58 97 I/O 03/15/17 03/15/17 03/15/17 03/16/17 03/16/17 03/16/17 07:00 15:00 23:00 07:00 15:00 23:00 Intake Total 280 ml 379 ml 448 ml 450 ml 960 ml Output Total 150 ml 300 ml 250 ml 150 ml Balance 130 ml 79 ml 198 ml 300 ml 960 ml Intake Oral 200 ml 360 ml 360 ml 450 ml 960 ml IV Total 80 ml 19 ml 88 ml Output Urine Total 150 ml 300 ml 250 ml 150 ml # Voids 2 1 # Bowel Movements 0 0 0 1 1 Laboratory Laboratory Tests Test 03/15/17 03/15/17 03/16/17 17:26 23:56 08:47 Activated Partial 47.0 55.4 67.4 Thromboplast Time Prothrombin Time 15.4 Prothromb Time International 1.4 Ratio Date/Time Procedure Status Source Growth 03/13/17 21:47 Stool Occult Blood (YENI) - Final Complete Stool Stool HEMOCCULT NEGATIVE 03/13/17 21:47 Giardia Antigen (YENI) - Final Complete Stool Stool NEGATIVE - NO GIARDIA ANTIGEN DETECTE... 03/13/17 21:47 - Final Complete Stool Stool NO ENTERIC PATHOGENS DETECTED BY PCR... Imaging Last Impressions Thyroid Ultrasound 03/15/17 0000 Signed Impressions: Service Date/Time: Wednesday, March 15, 2017 11:42 - CONCLUSION: Partly heterogeneous thyroid throughout. Small hypoechoic nodule on the right should be followed. Gonsalo Nam MD Cholangiopancreatography MRI 03/15/17 0000 Signed Impressions: Service Date/Time: Wednesday, March 15, 2017 08:56 - CONCLUSION: Gallstones. Otherwise unremarkable Gonsalo Nam MD Hepatobiliary Scan Nuclear Medicine 03/13/17 0000 Signed Impressions: Service Date/Time: Monday, March 13, 2017 08:52 - CONCLUSION: There is no evidence for cystic duct or common duct obstruction. Appearance of the small bowel is not as prominent as one would expect. MRCP may be of benefit. Syed Jeong MD FACR Abdomen/Pelvis CT 03/11/17 0000 Signed Impressions: Service Date/Time: Saturday, March 11, 2017 22:51 - CONCLUSION: 1. No evidence of acute abdominal or pelvic process. No masses are identified. 2. Cholelithiasis Christopher Ames MD Physical Exam HEENT: Normocephalic; atraumatic; no jaundice. CHEST: CTA CARDIAC: RRR ABDOMEN: Soft, nondistended, mild mid epigastric tenderness; no hepatosplenomegaly; bowel sounds are present in all four quadrants. EXTREMITIES: No clubbing, cyanosis, or edema. SKIN: Normal; no rash; no jaundice. DIAMOND GRINDER: No focal deficits; alert and oriented times three. Assessment and Plan Plan ASSESSMENT: - Abdominal pain. C/O constant mid/epigastric dull ache. No n/v. Tolerating diet. Abdomen/Pelvis CT (03/11/17)-----> 1. No evidence of acute abdominal or pelvic process. No masses are identified. 2. Cholelithiasis. HIDA (03/13/17)----> There is no evidence for cystic duct or common duct obstruction. Appearance of the small bowel is not as prominent as one would expect. MRCP may be of benefit. MRCP (03/15/17)----> Gallstones. Otherwise unremarkable. S/P EGD/Colonoscopy ( 03/14/17)---> distal esophagus with possible Barretts, colonoscopy to terminal ileum normal. He reports that his pain is much improved and he only has mild discomfort at times. He is tolerating a chicken sandwich. General surgery has been consulted for evaluation of cholelithiasis. Patient tells me that he would not want surgery even if it was recommended because of his cardiomyopathy and the fact that his pain is improving. PPI - Anemia. 7.7/23.4 yesterday. No obvious blood loss. Capsule endoscopy as outpatient. - Abnormal weight loss. Imaging/EGD/Colonoscopy as above. - HENRRY. Creat 1.54 yesterday - Hypothyroidism, per attending. PLAN: - FLAVIO - PPI - CBC, BMP in am - Capsule endoscopy as outpatient - GS has been consulted for evaluation of cholelithiasis - Pt seen and examined by Dr. Bob and myself and this note is written on his behalf Jennifer Vance Mar 16, 2017 14:40
[2017-03-16] MEDS: HEPARIN-D5W 25,000 U/250 ML 250 ML IV SCH (17:06)
--- NOTE | 2017-03-16 17:50 | MB ---
cc: JONATHAN MATOS M.D. DATE OF CONSULTATION 03/16/2017 REASON FOR CONSULTATION Gallstones. HISTORY OF PRESENT ILLNESS The patient is an 82-year-old male with chronic atrial fibrillation who was found to have epigastric pain, weight loss, change in bowel habits in addition to anemia. The patient reports having some loose stools and has had gradual loss in pain with some chronic pain in the right flank. The patient had a new pain in the epigastrium that has been going on for about 6 weeks. He has no food triggers of the pain and it is fairly constant. He reports that this has improved substantially while he has been in the hospital. He denies any problems with nausea or vomiting. PAST MEDICAL HISTORY Includes hypertension, hypercholesterolemia, congestive heart failure with cardiomyopathy, atrial fibrillation, COPD, peripheral artery disease and GE reflux disease. The patient reports that he recalls an ejection fraction of 35%. PAST SURGICAL HISTORY Significant for left carotid endarterectomy, mitral and tricuspid valve repair, right knee replacement, right ankle surgery. MEDICATIONS Currently include: 1. Lisinopril 2.5 milligrams p.o. q. daily. 2. Levothyroxine 125 micrograms q. daily. 3. Heparin drip. 4. Hydrocodone q. 6 hours as needed. 5. Bumetanide 2 milligrams p.o. q. day. 6. Pantoprazole 40 milligrams p.o. q. day. 7. Pravastatin 20 milligrams p.o. day. 8. Marian-Colace 1 tablet p.o. b.i.d. 9. Zofran p.r.n. 10. Milk of Magnesia p.r.n. 11. Senokot 17.2 milligrams p.o. b.i.d. 12. Lactulose 30 milligrams p.o. p.r.n. 13. Dulcolax suppository 10 milligrams p.r.n. severe constipation. PHYSICAL EXAMINATION GENERAL: Reveals a male in no acute distress. VITALS: BP 127/63, pulse 67, respirations 19, temperature 96.2, 97% saturation on room air. HEENT: Sclerae anicteric. Pupils reactive. CHEST: Clear to auscultation. CARDIAC: Exam reveals irregular rhythm. ABDOMEN: Soft and nontender. Specifically, there is no epigastric or right upper quadrant pain to deep palpation. There is no guarding, rebound, hepatomegaly or hernias. Pulses are present. NEUROLOGIC: Exam is nonfocal. LABORATORY VALUES Demonstrate WBCs of 3.5, hemoglobin 7.7, platelets 118,000. Chemistries, potassium is 3.9, BUN and creatinine 31 and 1.54. Liver function tests from 03/11/2017 are all within normal limits. Coags reveal INR of 1.4. This was 1.8 on 03/15. Imaging demonstrates a HIDA scan which shows gallbladder visualization at 10 minutes and activity in the small bowel in 15 minutes. No evidence of cystic duct or common duct obstruction. CT of the abdomen and pelvis was essentially unremarkable. Cholangiopancreatography demonstrates gallstones but otherwise unremarkable with no evidence of thickening of the gallbladder wall or pericholecystic fluid; no pancreatic duct abnormalities. ASSESSMENT Gallstones, very likely unremarkable. The patient relates having undergone an EGD recently with no evidence of ulcers. We will attempt to obtain this information. PLAN I do not recommend cholecystectomy at this time on this patient for his current findings as he is currently asymptomatic. If he continues to have pain we will consider surgery but given his low ejection fraction this would likely be hazardous. We will obtain ultrasound of the gallbladder to see if he has any gallbladder wall thickening and if not I would defer to medical management. MD JOSELO Olvera/AFBIO /5:16 PM /5:36 PM
[2017-03-17] VITALS (7 sets, daily range): BP systolic 104–128; BP diastolic 51–60; PULSE 51–74; RESP 16–19; TEMP 96.4–98.1; O2SAT 92–98
[2017-03-17] MEDS: LEVOTHYROXINE SODIUM 125 MCG TAB PO SCH (05:44)
[2017-03-17] MEDS: SODIUM CHLORIDE 0.9% FLUSH 10 ML FLUSH IV FLUSH SCH (09:00)
[2017-03-17] MEDS: LEFLUNOMIDE 20 MG PO SCH (09:10)
[2017-03-17] MEDS: PANTOPRAZOLE SOD 40 MG DELAYED RELEASE TAB PO SCH (09:10)
[2017-03-17] MEDS: LISINOPRIL 5 MG TAB PO SCH (09:10)
[2017-03-17] MEDS: DOCUSATE SODIUM 50 MG/SENNA 8.6 MG TAB PO SCH (09:10)
[2017-03-17] MEDS: PRAVASTATIN SOD 20 MG TAB PO SCH (09:17)
[2017-03-17] MEDS: BUMETANIDE 1 MG TAB PO SCH (09:17)
[2017-03-17 09:48] LABS: AUTOMATED NEUTROPHIL # 1.9 TH/MM3 (1.8-7.7); BASOPHIL # 0.1 TH/MM3 (0-0.2); BASOPHIL % 2.1 % (0.0-2.0); EOSINOPHIL # 0.2 TH/MM3 (0-0.4); EOSINOPHIL % 6.2 % (0.0-4.0); HEMATOCRIT 23.9 % (39.0-51.0); HEMO FLAGS DIFF FINAL; LYMPH % 26.5 % (9.0-44.0); LYMPHOCYTE # 0.9 TH/MM3 (1.0-4.8); MEAN CELL VOLUME 101.4 FL (80.0-100.0); MEAN CORPUSCULAR HEMOGLOBIN 35.3 PG (27.0-34.0); MEAN CORPUSCULAR HGB CONC 34.9 % (32.0-36.0); MONO % 11.5 % (0.0-8.0); NEUT % 53.7 % (16.0-70.0); PLATELET COUNT 120 TH/MM3 (150-450); RED BLOOD COUNT 2.36 MIL/MM3 (4.50-5.90); RED CELL DISTRIBUTION WIDTH 14.7 % (11.6-17.2); WHITE BLOOD COUNT 3.6 TH/MM3 (4.0-11.0)
[2017-03-17 10:02] LABS: APTT (PATIENT) 65.8 SEC (24.3-30.1); INTERNATIONAL NORMALIZED RATIO 1.2 RATIO; PROTHROMBIN TIME - PATIENT 13.3 SEC (9.8-11.6)
[2017-03-17 10:17] LABS: BICARBONATE 24.2 MEQ/L (21.0-32.0)
[2017-03-17 10:28] LABS: POTASSIUM 3.8 MEQ/L (3.5-5.1)
--- NOTE | 2017-03-17 12:30 | HHI.PR ---
Subjective Remarks abdominal discomfort had subsided a lot no nausea or vomiting Objective Vitals Vital Signs Date Time Temp Pulse Resp B/P Pulse Ox O2 Delivery O2 Flow Rate FiO2 03/17/17 08:00 97.9 51 18 104/51 95 03/17/17 04:00 98.1 55 16 106/53 92 03/17/17 00:32 16 03/17/17 00:00 97.5 59 17 104/57 95 03/16/17 20:00 96.5 66 17 108/59 96 03/16/17 16:00 97.6 60 20 107/51 97 I/O 03/16/17 03/16/17 03/16/17 03/17/17 03/17/17 03/17/17 07:00 15:00 23:00 07:00 15:00 23:00 Intake Total 450 ml 960 ml 240 ml 480 ml Output Total 150 ml 100 ml 175 ml Balance 300 ml 960 ml 140 ml 305 ml Intake Oral 450 ml 960 ml 240 ml 480 ml Output Urine Total 150 ml 100 ml 175 ml # Voids 1 # Bowel Movements 1 1 Result Diagram: 03/17/17 0852 03/17/17 0852 Imaging Last Impressions Thyroid Ultrasound 03/15/17 0000 Signed Impressions: Service Date/Time: Wednesday, March 15, 2017 11:42 - CONCLUSION: Partly heterogeneous thyroid throughout. Small hypoechoic nodule on the right should be followed. Gonsalo Nam MD Cholangiopancreatography MRI 03/15/17 0000 Signed Impressions: Service Date/Time: Wednesday, March 15, 2017 08:56 - CONCLUSION: Gallstones. Otherwise unremarkable Gonsalo Nam MD Hepatobiliary Scan Nuclear Medicine 03/13/17 0000 Signed Impressions: Service Date/Time: Monday, March 13, 2017 08:52 - CONCLUSION: There is no evidence for cystic duct or common duct obstruction. Appearance of the small bowel is not as prominent as one would expect. MRCP may be of benefit. Syed Jeong MD FACR Abdomen/Pelvis CT 03/11/17 0000 Signed Impressions: Service Date/Time: Saturday, March 11, 2017 22:51 - CONCLUSION: 1. No evidence of acute abdominal or pelvic process. No masses are identified. 2. Cholelithiasis Christopher Ames MD Objective Remarks awake and alert, nAD anicteric lungs clear irregular rhythm, HR 60s abdomen- soft, good bowel sounds, no guarding , no guarding or rigidity, extremities no edema neuro exam- non focal Procedures EGD- with duenas's esophagus colonoscopy unremarkable A/P Problem List: (1) Acute hyperkalemia ICD Code: E87.5 Status: Acute (2) Abdominal pain ICD Code: R10.9 Status: Acute (3) Weight loss ICD Code: R63.4 Status: Acute Assessment and Plan 82-year-old male admitted secondary to epigastric pain, hyperkalemia, anemia, and attend a 10 to 15 pound weight loss in the past month. Gallstones- -symptomatic with persistent epigastric fullness/ache- symptoms improved - not good candidate for surgery- with CMP --- patient wants second opinion outside Gastroesophageal reflux disease MRCP with gallstones Continue PPI bid History of mitral and tricuspid valve repair Peripheral artery disease Paroxysmal atrial fibrillation-- slow ventricular rate- asymptomatic - telemetry with bradycardia- pauses- we will hold digoxin for now - hypothyroidism - contributing factor- - -restart Amidoarone and Digoxin, Plavix - restart coumadin- no plans for surgery here Cardiomyopathy chronic systolic CHF- compensated - started on Lisinopril at 2.5 mg daily Holding spironolactone Follow blood pressures Cardiology ff- known to Dr. Clark Severe hypothyroidism- likely associated with amiodarone use - denies any history of thyroid disorder. - started on synthroid.- TSH monitoring in 4-6 weeks as OP - no thyromegaly. solitary small nodule- OP ff up DC home today low fat heart healthy diet Continue home meds- including coumadin activity as tolerated- weightbearing, no stre uous activity OP ff up with Dr. Clark and PCP Dr. Tripathi OP ff up with - for second opinion DVT prophylaxis Heparin Hyperkalemia Resolved follow for recurrence Chronic kidney insufficiency -renal functions near baseline patient up and ambulating Problem Qualifiers (1) Abdominal pain: Qualified Code: R10.10 - Pain of upper abdomen Vipin Ferguson MD Mar 17, 2017 12:30
[2017-03-17] MEDS ORDERED: METO25TA3 PO (12:37)
--- NOTE | 2017-03-17 12:40 | HHI.DS ---
Discharge Summary Admission Date Mar 13, 2017 at 08:23 Discharge Date: Mar 17, 2017 Admitting Diagnosis hyperkalemia (1) Acute hyperkalemia ICD Code: E87.5 Diagnosis: Principal (2) Abdominal pain ICD Code: R10.9 Diagnosis: Principal (3) Weight loss ICD Code: R63.4 Diagnosis: Principal Procedures EGD- with duenas's esophagus colonoscopy unremarkable Brief History - From Admission Written by Homero Forbes, acting as scribe for Dr. Gaytan on 03/11/17 at 15: 26. 82-year-old male hypertension, hyperlipidemia, atrial fibrillation, mitral and tricuspid valve , congestive heart failure who presented to hospital because because of abnormal laboratory studies. Patient indicates that he has been having upper abdominal pain for the last week. He went to his primary medical doctor's office for evaluation and had laboratory studies performed. Lab results came back and patient was told to come to the hospital because he had an elevated potassium level. Patient states that his abdominal pain is located in his upper abdomen region. Usually 24 on a pain scale, however that has been couple occasions was gotten worse. He has not had any nausea or vomiting. The pain is there with deep palpation. He indicates that he is had what he stated was diarrhea for the last few days. States that whenever he passes gas he gets remnants of stool come out. Patient indicates that he has had a 1015 pound weight loss in the last month. Patient was seen in the presence of his son. They're concerned about his abdominal pain and would like it evaluated at this time. Patient denies any chest pain, shortness of breath, palpitations, dyspnea, muscle cramps CBC/BMP: 03/17/17 0852 03/17/17 0852 Significant Findings Laboratory Tests Test 03/14/17 03/14/17 03/15/17 03/15/17 14:08 23:31 00:51 05:26 Prothrombin Time 20.4 SEC 19.9 SEC (9.8-11.6) (9.8-11.6) Activated Partial 35.7 SEC 43.4 SEC 63.3 SEC Thromboplast Time (24.3-30.1) (24.3-30.1) (24.3-30.1) Free Thyroxine 0.42 NG/DL (0.76-1.46) Free Triiodothyronine (T3) 2.00 PG/ML pg/dL (2.18-3.98) Thyroid Stimulating Hormone 61.900 uIU/ML 3rd Gen (0.358-3.740) Red Blood Count 2.45 MIL/MM3 2.27 MIL/MM3 (4.50-5.90) (4.50-5.90) Hemoglobin 8.7 GM/DL 7.7 GM/DL (13.0-17.0) (13.0-17.0) Hematocrit 25.0 % 23.4 % (39.0-51.0) (39.0-51.0) Mean Corpuscular Volume 102.0 FL 103.3 FL (80.0-100.0) (80.0-100.0) Mean Corpuscular Hemoglobin 35.3 PG (27.0-34.0) Platelet Count 126 TH/MM3 118 TH/MM3 (150-450) (150-450) Monocytes (%) (Auto) 12.7 % (0.0-8.0) Eosinophils (%) (Auto) 4.1 % (0.0-4.0) Chloride Level 111 MEQ/L 113 MEQ/L (98-107) (98-107) Blood Urea Nitrogen 32 MG/DL (7-18) 31 MG/DL (7-18) Creatinine 1.67 MG/DL 1.54 MG/DL (0.60-1.30) (0.60-1.30) Estimat Glomerular Filtration 40 ML/MIN (>89) 44 ML/MIN (>89) Rate Random Glucose 120 MG/DL (74-106) White Blood Count 3.5 TH/MM3 (4.0-11.0) Test 03/15/17 03/15/17 03/15/17 03/16/17 11:20 17:26 23:56 08:47 Activated Partial 32.8 SEC 47.0 SEC 55.4 SEC 67.4 SEC Thromboplast Time (24.3-30.1) (24.3-30.1) (24.3-30.1) (24.3-30.1) Prothrombin Time 15.4 SEC (9.8-11.6) Test 03/17/17 08:52 White Blood Count 3.6 TH/MM3 (4.0-11.0) Red Blood Count 2.36 MIL/MM3 (4.50-5.90) Hemoglobin 8.3 GM/DL (13.0-17.0) Hematocrit 23.9 % (39.0-51.0) Mean Corpuscular Volume 101.4 FL (80.0-100.0) Mean Corpuscular Hemoglobin 35.3 PG (27.0-34.0) Platelet Count 120 TH/MM3 (150-450) Monocytes (%) (Auto) 11.5 % (0.0-8.0) Eosinophils (%) (Auto) 6.2 % (0.0-4.0) Basophils (%) (Auto) 2.1 % (0.0-2.0) Lymphocytes # (Auto) 0.9 TH/MM3 (1.0-4.8) Prothrombin Time 13.3 SEC (9.8-11.6) Activated Partial 65.8 SEC Thromboplast Time (24.3-30.1) Sodium Level 135 MEQ/L (136-145) Blood Urea Nitrogen 33 MG/DL (7-18) Creatinine 1.56 MG/DL (0.60-1.30) Estimat Glomerular Filtration 43 ML/MIN (>89) Rate Imaging Last Impressions Thyroid Ultrasound 03/15/17 Signed Impressions: Service Date/Time: Wednesday, March 15, 2017 11:42 - CONCLUSION: Partly heterogeneous thyroid throughout. Small hypoechoic nodule on the right should be followed. Gonsalo Nam MD Cholangiopancreatography MRI 03/15/17 0000 Signed Impressions: Service Date/Time: Wednesday, March 15, 2017 08:56 - CONCLUSION: Gallstones. Otherwise unremarkable Gonsalo Nam MD Hepatobiliary Scan Nuclear Medicine 03/13/17 0000 Signed Impressions: Service Date/Time: Monday, March 13, 2017 08:52 - CONCLUSION: There is no evidence for cystic duct or common duct obstruction. Appearance of the small bowel is not as prominent as one would expect. MRCP may be of benefit. Syed Jeong MD FACR Abdomen/Pelvis CT 03/11/17 0000 Signed Impressions: Service Date/Time: Saturday, March 11, 2017 22:51 - CONCLUSION: 1. No evidence of acute abdominal or pelvic process. No masses are identified. 2. Cholelithiasis Christopher Ames MD PE at Discharge awake and alert, nAD anicteric lungs clear irregular rhythm, HR 60s abdomen- soft, good bowel sounds, no guarding , no guarding or rigidity, extremities no edema neuro exam- non focal Pt update on day of discharge awake alert, tolerating po, no abdominal pain or discomfort Hospital Course 82-year-old male admitted secondary to epigastric pain, hyperkalemia, anemia, and attend a 10 to 15 pound weight loss in the past month. Gallstones- -symptomatic with persistent epigastric fullness/ache- symptoms improved - not good candidate for surgery- with CMP --- patient wants second opinion outside Gastroesophageal reflux disease MRCP with gallstones Continue PPI bid History of mitral and tricuspid valve repair Peripheral artery disease Paroxysmal atrial fibrillation-- slow ventricular rate- asymptomatic - telemetry with bradycardia- pauses- we will hold digoxin for now - hypothyroidism - contributing factor- - -restart Amidoarone and Digoxin, Plavix - restart coumadin- no plans for surgery here Cardiomyopathy chronic systolic CHF- compensated - started on Lisinopril at 2.5 mg daily Holding spironolactone Follow blood pressures Cardiology ff- known to Dr. Clark Severe hypothyroidism- likely associated with amiodarone use - denies any history of thyroid disorder. - started on synthroid.- TSH monitoring in 4-6 weeks as OP - no thyromegaly. solitary small nodule- OP ff up DC home today low fat heart healthy diet Continue home meds- including coumadin activity as tolerated- weightbearing, no stre uous activity OP ff up with Dr. Clark and PCP Dr. Tripathi OP ff up with - for second opinion Pt Condition on Discharge: Stable Discharge Disposition: Discharge Home Discharge Time: <= 30 minutes Discharge Instructions DIET: Follow Instructions for: Heart Healthy Diet Speech Therapy-Diet Recommends: Regular Additional Diet Instructions: low fat diet Activities you can perform: Weight Bearing as La[place] Follow up Referrals: Cardiology - 03/21/17 with [facility] PCP Follow-up - 3-5 Days with [facility] - 1 Week with Lobo Blair MD New Medications: Metoprolol Tartrate (Metoprolol Tartrate) 25 Mg Tab 12.5 MG PO Q12HR CMP/ARR Days 30 TAB Continued Medications: Amiodarone (Amiodarone) 200 Mg Tab 200 MG PO DAILY Regulate Heart Beat #30 Ref 0 TAB Bumetanide (Bumetanide) 2 Mg Tab 2 MG PO DAILY Ref 0 TAB Clopidogrel (Plavix) 75 Mg Tab 75 MG PO DAILY Blood Clot Prevention #30 Ref 0 TAB Digoxin (Digox) 0.125 Mg Tab 0.125 MG PO DAILY Regulate Heart Beat #30 Ref 0 TAB Folic Acid (Folic Acid) 1 Mg Tablet Leflunomide (Arava) 20 Mg Tab 20 MG PO DAILY TAB Lisinopril (Lisinopril) 5 Mg Tab 5 MG PO DAILY Blood Pressure Management #30 Ref 0 TAB Potassium Chloride ER (Potassium Chloride ER) 20 Meq Tab 20 MEQ PO DAILY Electrolyte Replacement #30 Ref 0 TAB Pravastatin (Pravastatin) 20 Mg Tab 20 MG PO DAILY Cholesterol Management #30 Ref 0 TAB Spironolactone (Spironolactone) 25 Mg Tab 25 MG PO DAILY #30 Ref 0 TAB Sucralfate Liq (Carafate Liq) 1 Gm/10 Ml Susp 1 GM PO BID on empty stomach Duodenal ulcer #900 Ref 0 ML Warfarin (Warfarin) 2 Mg Tab 2 MG PO DAILY Blood Clot Prevention #30 Ref 0 TAB Discontinued Medications: Metoprolol Tartrate (Metoprolol Tartrate) 25 Mg Tab 25 MG PO BID #60 Ref 0 TAB Pantoprazole (Pantoprazole) 40 Mg Tab 40 MG PO DAILY Reflux #30 Ref 0 TAB Tramadol (Tramadol) 50 Mg Tab 50 MG PO Q6H PRN PAIN Ref 0 TAB Vipin Ferguson MD Mar 17, 2017 12:40
--- NOTE | 2017-03-17 16:53 | RADRPT ---
EXAM DATE/TIME: 03/17/2017 09:47 [facility] COMPARISON: No previous studies available for comparison. INDICATIONS : Right upper quadrant pain. MEDICAL HISTORY : Peripheral vascular disease. Hypercholesterolemia. Gastroesophageal reflux disease. Hearing problems. Dentures. Coronary artery disease. Anticoagulant therapy, warfarin. Atrial fibrillation. Hypertensio n. COPD. Abdominal pain. Arthritis. Skin cancer. SURGICAL HISTORY : Carotid endarterectomy. Mitral and tricuspid valve replaced. ENCOUNTER: Initial ACUITY: 3 days PAIN SCORE: 4/10 LOCATION: Right upper quadrant MEASUREMENTS: LIVER: 16.1 cm length COMMON DUCT: 5 mm RIGHT KIDNEY: 9.6 x 4.6 x 5.4 cm FINDINGS: LIVER: A coarse heterogeneous hepatic fracture is noted. There is no evidence of discrete space-occupying le lolly or biliary obstruction. Portal vein is patent. COMMON DUCT: No intraluminal mass or stone visualized. GALLBLADDER: Multiple filling defects are identified in the gallbladder. There is no evidence of gallbladder wall thickening or surrounding fluid. PANCREAS: The visualized portions are within normal limits. RIGHT KIDNEY: Acoustic shadowing is identified from the kidney suggesting a small calculus. There is no evidence of hydronephrosis. CONCLUSION: 1. Cholelithiasis. 2. Parenchymal liver disease with abnormal echotexture. 3. Suspected right renal calculus. 4. No acute process. Ced Man MD on March 17, 2017 at 16:48 Board Certified Radiologist. This report was verified electronically.
[2017-03-17] MEDS ORDERED: METOPROLOL TARTRATE 25 MG TAB PO SCH (21:00)
== END 2017-03-17 17:54 | disposition home or self-care (01) | DRG 641 ==
LOC: PHED 13:19 → PHEDA 14:44 → INTOOBSV 14:44 → PH3A 15:26 → OBSVTOIN 03-13 08:23 → NEPFCDU 03-14 02:39 → HOCA 03-14 19:11
PROVIDERS: ADMIT Internal Medicine; ATTEND Internal Medicine
PROC: 0DJ08ZZ Inspection of Upper Intestinal Tract, Via Natural or Artificial Opening Endoscopic (ICD-10-PCS; principal; 2017-03-14 11:15)
PROC: 0DJD8ZZ Inspection of Lower Intestinal Tract, Via Natural or Artificial Opening Endoscopic (ICD-10-PCS; 2017-03-14 11:15)
DX: E87.5 Hyperkalemia (principal); N17.9 Acute kidney failure, unspecified; I95.9 Hypotension, unspecified; I42.9 Cardiomyopathy, unspecified; I13.0 Hypertensive heart and chronic kidney disease with heart failure and stage 1 through stage 4 chronic kidney disease, or unspecified chronic kidney disease; I50.22 Chronic systolic (congestive) heart failure; I48.2 Chronic atrial fibrillation; J44.9 Chronic obstructive pulmonary disease, unspecified; D64.9 Anemia, unspecified; M19.90 Unspecified osteoarthritis, unspecified site; M06.9 Rheumatoid arthritis, unspecified; K80.20 Calculus of gallbladder without cholecystitis without obstruction; I73.9 Peripheral vascular disease, unspecified; E03.9 Hypothyroidism, unspecified; Z96.651 Presence of right artificial knee joint; I25.10 Atherosclerotic heart disease of native coronary artery without angina pectoris; K21.9 Gastro-esophageal reflux disease without esophagitis; N18.9 Chronic kidney disease, unspecified; E78.5 Hyperlipidemia, unspecified; K22.70 Barrett's esophagus without dysplasia; G89.29 Other chronic pain; R63.4 Abnormal weight loss; Z79.01 Long term (current) use of anticoagulants; Z87.891 Personal history of nicotine dependence; R10.9 Unspecified abdominal pain
CPT/HCPCS: 74176; 74181; 76377; 76536; 76705; 78226; 80048; 80076; 80162; 82150; 82272; 82607; 82728; 82746; 83540; 83550; 83690; 83735; 84132; 84439; 84443; 84481; 85025; 85027; 85610; 85730; 87329; 87493; 87506; 93005; 96365; 96366; 96375; A9537; G0378; G8987-GP; G8988-GP; J1644; J1815; Q9963